=== PATIENT | female | born 1980 | race Caucasian/White ===

== ENCOUNTER 2021-01-11 19:21 | Emergency (ER) | payer BC ==
[2021-01-11 19:45] VITALS: TEMP 98.5
[2021-01-11] MEDS ORDERED: KETOROLAC 15 MG/ML 1 ML VIAL IVP STA (20:07)
[2021-01-11] MEDS ORDERED: ONDANSETRON 4 MG/2 ML VIAL IVP STA ×2 (20:31→22:30)
[2021-01-11 20:39] LABS: Basophils # (A) 0.1 k/uL (0-0.2); Basophils % (A) 1 %; Eosinophils # (A) 0.3 k/uL (0-0.7); Eosinophils % (A) 4 %; HCT 39.6 % (34.0-46.0); HGB 13.9 gm/dL (11.4-16.0); Lymphocytes # (A) 2.3 k/uL (1.0-4.8); Lymphocytes % (A) 29 %; MCH 30.5 pg (25.0-35.0); MCV 87.1 fL (80.0-100.0); Mean Platelet Volume 7.2; Monocytes # (A) 0.3 k/uL (0-1.0); Monocytes % (A) 4 %; Neutrophils # (A) 4.8 k/uL (1.3-7.7); Neutrophils % (A) 61 %; Platelet Count 247 k/uL (150-450); RBC 4.54 m/uL (3.80-5.40); RDW 13.7 % (11.5-15.5); WBC 7.9 k/uL (3.8-10.6)
[2021-01-11 20:41] LABS: Appearance,Urine Clear (Clear); Bacteria,Urine Rare /hpf; Bilirubin,Urine Negative (Negative); Blood,Urine Large (Negative); Color,Urine Light Yellow; Glucose,Urine (UA) Negative (Negative); Ketones,Urine Negative (Negative); Leukocyte Esterase,Urine Moderate (Negative); Nitrite,Urine Negative (Negative); PH, Urine 5.5 (5.0-8.0); Protein,Urine Negative (Negative); RBC,Urine 1 /hpf (0-5); Squamous Epithelial Cell,Urine 1 /hpf (0-4); Urobilinogen,Urine <2.0 mg/dL (<2.0); WBC,Urine 4 /hpf (0-5)
[2021-01-11 20:50] LABS: ALT 37 U/L (4-34); AST 30 U/L (14-36); African American GFR (CKD) >90 (>60 ml/min/1.73 sqM); Albumin 4.4 g/dL (3.5-5.0); Alkaline Phosphatase 86 U/L (38-126); Amylase 95 U/L (30-110); Anion Gap 10 mmol/L; Blood Urea Nitrogen 16 mg/dL (7-17); Calcium 9.8 mg/dL (8.4-10.2); Carbon Dioxide 25 mmol/L (22-30); Chloride 103 mmol/L (98-107); Glucose 87 mg/dL (74-99); Lipase 103 U/L (23-300); Non-African American GFR(CKD) >90 (>60 ml/min/1.73 sqM); Potassium 4.1 mmol/L (3.5-5.1); Sodium 138 mmol/L (137-145); Total Bilirubin 0.3 mg/dL (0.2-1.3); Total Protein 7.3 g/dL (6.3-8.2)
--- NOTE | 2021-01-11 20:52 | ED ---
Abdominal Pain HPI - General Source: patient, RN notes reviewed Mode of arrival: ambulatory Limitations: no limitations <Ananda Nelson - Last Filed: 01/11/21 22:58> <Lindsay Dhillon - Last Filed: 01/13/21 11:19> - General Chief Complaint: Abdominal Pain Stated Complaint: side pain Time Seen by Provider: 01/11/21 19:46 - History of Present Illness Initial Comments: This is a 40-year-old female presents emergency Department chief complaint right-sided abdominal pain. Patient states she's been having on and off s ymptoms but today she had associated nausea vomiting. Patient states that the pain is in her right side rates her right shoulder back. Denies any significant diarrhea constipation dysuria hematuria no chance . Patient states she has been associated with some fluids. Patient has no complaints of fevers chills chest pain currently. (Ananda Nelson) - Related Data Home Medications Medication Instructions Recorded Confirmed [place]a/APAP/Caf/Cod 86-858-25-30 1 cap PO Q4H PRN 07/24/16 07/24/16 [Fioricet w/Cod 85-875-97-30MG] Butalb/APAP/Caff 50-325-40Mg 1 - 2 tab PO Q6H PRN 07/24/16 07/24/16 [Fioricet 50-325-40] Rizatriptan Benzoate [Maxalt] 5 mg PO DAILY PRN 07/24/16 07/24/16 Previous Rx's Medication Instructions Recorded Cyclobenzaprine [Flexeril] 10 mg PO TID #20 tablet 07/24/16 Ibuprofen [Motrin] 600 mg PO Q8HR PRN #30 tab 07/24/16 Ondansetron Odt [Zofran Odt] 4 mg PO Q8HR PRN #10 tab 01/11/21 Allergies Allergy/AdvReac Type Severity Reaction Status Date / Time metoclopramide [From Reglan] Allergy Rapid Verified 01/11/21 19:45 Heart Rate Penicillins Allergy Rash/Hives Verified 01/11/21 19:45 prochlorperazine Allergy Rapid Verified 01/11/21 19:45 [From Compazine] Heart Rate Sulfa (Sulfonamide Allergy Rash/Hives Verified 02/18/19 10:40 Antibiotics) Review of Systems ROS Other: All systems not noted in ROS Statement are negative. <Ananda Nelson - Last Filed: 01/11/21 22:58> ROS Other: All systems not noted in ROS Statement are negative. <JacquieLindsay Orlando - Last Filed: 01/13/21 11:19> ROS Statement: Those systems with pertinent positive or pertinent negative responses have been documented in the HPI. 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 Absent: scleral icterus, conjunctival injection, periorbital swelling ENT exam: Present: normal exam, normal oropharynx, mucous membranes moist, TM's normal bilaterally Neck exam: Present: normal inspection, full ROM. Absent: tenderness, meningismus, lymphadenopathy Respiratory exam: Present: normal lung sounds bilaterally. Absent: respiratory distress, wheezes, rales, rhonchi, stridor Cardiovascular Exam: Present: regular rate, normal rhythm, normal heart sounds. Absent: systolic murmur, diastolic murmur, rubs, gallop, clicks GI/Abdominal exam: Present: soft, tenderness (Moderate right-sided), normal bowel sounds. Absent: distended, guarding, rebound, rigid Back exam: Absent: CVA tenderness (R), CVA tenderness (L) Neurological exam: Present: alert, oriented X3 Skin exam: Present: warm, dry, intact, normal color. Absent: rash <Ananda Nelson - Last Filed: 01/11/21 22:58> Course Vital Signs 01/11/21 01/11/21 01/11/21 19:42 20:55 21:55 Temperature 98.5 F Pulse Rate 87 68 64 Respiratory 20 16 16 Rate Blood Pressure 127/87 100/61 93/55 O2 Sat by Pulse 99 100 99 Oximetry 01/11/21 23:08 Temperature Pulse Rate 72 Respiratory 16 Rate Blood Pressure 98/62 O2 Sat by Pulse 98 Oximetry Medical Decision Making - Lab Data Result diagrams: 01/11/21 20:30 01/11/21 20:30 <Ananda Nelson - Last Filed: 01/11/21 22:58> - Lab Data Result diagrams: 01/11/21 20:30 01/11/21 20:30 <Lindsay Dhillon - Last Filed: 01/13/21 11:19> - Medical Decision Making Labs ultrasound and CT reviewed no CVAT findings patient has contracted ga llbladder concerning for biliary dyskinesia. Patient will follow-up with outpatient surgeon will follow low-fat diet and return parameters were discussed. (Ananda Nelson) I was available for consultation in the emergency department. The history and physical exam were done by the midlevel provider. I was consulted for this patients care. I reviewed the case with the midlevel provider and based on their presentation of the patient, I agree with the assessment, medical decision making and plan of care as documented. Chart was dictated using [employer] dictation software. Attempts were made to correct any dictation errors however some typographical errors may persist. Patient was seen during a national state of emergency due to the Covid-19 pandemic. (Lindsay Dhillon) - Lab Data Lab Results 01/11/21 01/11/21 01/11/21 Range/Units 20:30 20:30 20:30 WBC 7.9 (3.8-10.6) k/uL RBC 4.54 (3.80-5.40) m/uL Hgb 13.9 (11.4-16.0) gm/dL Hct 39.6 (34.0-46.0) % MCV 87.1 (80.0-100.0) fL MCH 30.5 (25.0-35.0) pg MCHC 35.0 (31.0-37.0) g/dL RDW 13.7 (11.5-15.5) % Plt Count 247 (150-450) k/uL MPV 7.2 Neutrophils % 61 % Lymphocytes % 29 % Monocytes % 4 % Eosinophils % 4 % Basophils % 1 % Neutrophils # 4.8 (1.3-7.7) k/uL Lymphocytes # 2.3 (1.0-4.8) k/uL Monocytes # 0.3 (0-1.0) k/uL Eosinophils # 0.3 (0-0.7) k/uL Basophils # 0.1 (0-0.2) k/uL Sodium (137-145) mmol/L Potassium (3.5-5.1) mmol/L Chloride (98-107) mmol/L Carbon Dioxide (22-30) mmol/L Anion Gap mmol/L BUN (7-17) mg/dL Creatinine (0.52-1.04) mg/dL Est GFR (CKD-EPI)AfAm (>60 ml/min/1.73 sqM) Est GFR (CKD-EPI)NonAf (>60 ml/min/1.73 sqM) Glucose (74-99) mg/dL Calcium (8.4-10.2) mg/dL Total Bilirubin (0.2-1.3) mg/dL AST (14-36) U/L ALT (4-34) U/L Alkaline Phosphatase (38-126) U/L Total Protein (6.3-8.2) g/dL Albumin (3.5-5.0) g/dL Amylase (30-110) U/L Lipase (23-300) U/L Urine Color Light Yellow Urine Appearance Clear (Clear) Urine pH 5.5 (5.0-8.0) Ur Specific [place] 1.010 (1.001-1.035) Urine Protein Negative (Negative) Urine Glucose (UA) Negative (Negative) Urine Ketones Negative (Negative) Urine Blood Large H (Negative) Urine Nitrite Negative (Negative) Urine Bilirubin Negative (Negative) Urine Urobilinogen <2.0 (<2.0) mg/dL Ur Leukocyte Esterase Moderate H (Negative) Urine RBC 1 (0-5) /hpf Urine WBC 4 (0-5) /hpf Ur Squamous Epith Cells 1 (0-4) /hpf Urine Bacteria Rare H (None) /hpf Urine HCG, Qual Not Detected (Not Detectd) 01/11/21 Range/Units 20:30 WBC (3.8-10.6) k/uL RBC (3.80-5.40) m/uL Hgb (11.4-16.0) gm/dL Hct (34.0-46.0) % MCV (80.0-100.0) fL MCH (25.0-35.0) pg MCHC (31.0-37.0) g/dL RDW (11.5-15.5) % Plt Count (150-450) k/uL MPV Neutrophils % % Lymphocytes % % Monocytes % % Eosinophils % % Basophils % % Neutrophils # (1.3-7.7) k/uL Lymphocytes # (1.0-4.8) k/uL Monocytes # (0-1.0) k/uL Eosinophils # (0-0.7) k/uL Basophils # (0-0.2) k/uL Sodium 138 (137-145) mmol/L Potassium 4.1 (3.5-5.1) mmol/L Chloride 103 (98-107) mmol/L Carbon Dioxide 25 (22-30) mmol/L Anion Gap 10 mmol/L BUN 16 (7-17) mg/dL Creatinine 0.74 (0.52-1.04) mg/dL Est GFR (CKD-EPI)AfAm >90 (>60 ml/min/1.73 sqM) Est GFR (CKD-EPI)NonAf >90 (>60 ml/min/1.73 sqM) Glucose 87 (74-99) mg/dL Calcium 9.8 (8.4-10.2) mg/dL Total Bilirubin 0.3 (0.2-1.3) mg/dL AST 30 (14-36) U/L ALT 37 H (4-34) U/L Alkaline Phosphatase 86 (38-126) U/L Total Protein 7.3 (6.3-8.2) g/dL Albumin 4.4 (3.5-5.0) g/dL Amylase 95 (30-110) U/L Lipase 103 (23-300) U/L Urine Color Urine Appearance (Clear) Urine pH (5.0-8.0) Ur Specific [place] (1.001-1.035) Urine Protein (Negative) Urine Glucose (UA) (Negative) Urine Ketones (Negative) Urine Blood (Negative) Urine Nitrite (Negative) Urine Bilirubin (Negative) Urine Urobilinogen (<2.0) mg/dL Ur Leukocyte Esterase (Negative) Urine RBC (0-5) /hpf Urine WBC (0-5) /hpf Ur Squamous Epith Cells (0-4) /hpf Urine Bacteria (None) /hpf Urine HCG, Qual (Not Detectd) Disposition Is patient prescribed a controlled substance at d/c from ED?: No Time of Disposition: 22:59 <Ananda Nelson - Last Filed: 01/11/21 22:58> <Lindsay Dhillon - Last Filed: 01/13/21 11:19> Clinical Impression: Biliary dyskinesia, Abdominal pain Disposition: HOME SELF-CARE Condition: Stable Instructions (If sedation given, give patient instructions): Low Fat Diet (ED), Abdominal Pain (ED) Additional Instructions: Please return to the Emergency Department if symptoms worsen or any other concerns. Prescriptions: Ondansetron Odt [Zofran Odt] 4 mg PO Q8HR PRN #10 tab PRN Reason: Nausea Referrals: Marissa Ramirez MD [Primary Care Provider] - 1-2 days Roni Carrero MD [Medical Doctor] - 1-2 days Yasmine Nayak MD [STAFF PHYSICIAN] - 1-2 days
--- NOTE | 2021-01-11 21:34 | US ---
EXAMINATION TYPE: US gallbladder DATE OF EXAM: 01/11/2021 COMPARISON: NONE CLINICAL HISTORY: pain. right sided pain, shoulder pain, vomited today EXAM MEASUREMENTS: Liver Length: 17.8 cm Gallbladder Wall: 0.4 cm CBD: 0.5 cm Right Kidney: 9.3 x 4.3 x 4.4 cm Pancreas: wnl Liver: wnl Gallbladder: contracted, pt NPO 3hrs Evidence for sonographic Oh's sign: no CBD: wnl Right Kidney: wnl IMPRESSION: Contracted gallbladder. No gallstones or dilated ducts.
[2021-01-11] MEDS ORDERED: HYDROmorphone 0.5 MG/0.5 ML SYRINGE IVP STA (22:30)
--- NOTE | 2021-01-11 22:32 | CT ---
EXAMINATION TYPE: CT abdomen pelvis w con DATE OF EXAM: 01/11/2021 COMPARISON: None HISTORY: Right sided abdominal pain. CT DLP: 1060.8 mGycm Automated exposure control for dose reduction was used. CONTRAST: Performed with IV Contrast, patient injected with 100ml mL of Isovue 300. Lung bases are clear. There is no pleural effusion. Heart size is normal. There is no pericardial eff usion. Liver spleen pancreas gallbladder stomach appear intact. Bile ducts are not dilated. There is no adre nal mass. Kidneys show satisfactory contrast opacification. There is no hydronephrosis. Delayed image s show normal renal excretion. There is no retroperitoneal adenopathy. There is no sign of thickened appendix. Bladder distends smoothly. There is IUD in the uterine fundus. Uterus is anteverted. There is no free fluid in the pelvis. Lumbar vertebra have normal spacing and alignment. The posterior elements are intact. Bony pelvis is intact. Hip joints are intact. There is no mesenteric edema. There is no ascites or free air. There is no bowel obstruction. There i s 1.5 x 3 cm fat-containing umbilical hernia. IMPRESSION: Negative exam. Appendix not seen. No sign of thickened appendix. Terminal ileum appears normal.
[2021-01-11 22:57] VITALS: RESP 16
[2021-01-11] MEDS ORDERED: ACET/COD 300 MG/30 MG STARTER PACK 6 TAB BTL PO STA (22:57)
[2021-01-11] MEDS ORDERED: ONDANSETRON 4 MG ODT STARTER PACK 2 TAB BTL PO STA (22:57)
[2021-01-11 23:10] VITALS: BP 98/62; PULSE 72
== END 2021-01-11 23:08 | disposition home or self-care (01) ==
LOC: EC 19:21
DX: R10.9 Unspecified abdominal pain (principal); K82.8 Other specified diseases of gallbladder; I42.9 Cardiomyopathy, unspecified; Z79.1 Long term (current) use of non-steroidal anti-inflammatories (NSAID); Z87.891 Personal history of nicotine dependence; Z79.899 Other long term (current) drug therapy; Z88.0 Allergy status to penicillin; Z88.2 Allergy status to sulfonamides; Z88.8 Allergy status to other drugs, medicaments and biological substances
CPT/HCPCS: 99284; 96374; 96375 ×2; 96376; 36415; 80053; 82150; 83690; 85025; 81001; 81025; 76705; 74177; J2405; J1885; S0119; J1170; Q9967

== ENCOUNTER 2021-01-13 11:35 | Emergency (ER) | payer BC ==
[2021-01-13 11:51] VITALS: TEMP 98.2
[2021-01-13] MEDS ORDERED: ONDANSETRON 4 MG/2 ML VIAL IVP STA (12:06)
[2021-01-13] MEDS ORDERED: HYDROmorphone 1 MG/ML 1 ML SYRINGE IVP STA (12:06)
--- NOTE | 2021-01-13 12:42 | XR ---
KUB HISTORY: Pain, distention vomiting Frontal KUB and [address] scan 01/11/2021 Lung bases are clear. Intrauterine contraceptive device is present within the pelvis. There is no joselin dent bowel obstruction or pneumoperitoneum. Retained fecal debris is present throughout the distribut ion of the colon. No pathologic calcification. Probable injection granuloma present over the left glu teal region. IMPRESSION: Correlate for fecal stasis. Intrauterine contraceptive device.
[2021-01-13 12:45] LABS: Basophils % (A) 1 %; Eosinophils # (A) 0.2 k/uL (0-0.7); Eosinophils % (A) 4 %; HCT 38.5 % (34.0-46.0); Lymphocytes # (A) 1.4 k/uL (1.0-4.8); Lymphocytes % (A) 24 %; MCH 29.7 pg (25.0-35.0); MCHC 33.8 g/dL (31.0-37.0); MCV 87.9 fL (80.0-100.0); Mean Platelet Volume 7.7; Monocytes # (A) 0.3 k/uL (0-1.0); Monocytes % (A) 4 %; Neutrophils # (A) 3.7 k/uL (1.3-7.7); Neutrophils % (A) 66 %; Platelet Count 238 k/uL (150-450); RBC 4.38 m/uL (3.80-5.40); RDW 13.8 % (11.5-15.5); WBC 5.6 k/uL (3.8-10.6)
[2021-01-13 12:53] LABS: ALT 32 U/L (4-34); AST 30 U/L (14-36); African American GFR (CKD) >90 (>60 ml/min/1.73 sqM); Alkaline Phosphatase 78 U/L (38-126); Amylase 70 U/L (30-110); Anion Gap 9 mmol/L; Blood Urea Nitrogen 9 mg/dL (7-17); Calcium 8.8 mg/dL (8.4-10.2); Carbon Dioxide 23 mmol/L (22-30); Chloride 107 mmol/L (98-107); Glucose 106 mg/dL (74-99); Lipase 68 U/L (23-300); Non-African American GFR(CKD) >90 (>60 ml/min/1.73 sqM); Potassium 4.4 mmol/L (3.5-5.1); Sodium 139 mmol/L (137-145); Total Bilirubin 0.3 mg/dL (0.2-1.3); Total Protein 6.6 g/dL (6.3-8.2)
[2021-01-13 13:01] LABS: INR 0.9 (<1.2); Partial Thromboplastin Time 22.6 sec (22.0-30.0); Prothrombin Time 9.5 sec (9.0-12.0)
[2021-01-13 13:02] LABS: Appearance,Urine Clear (Clear); Bilirubin,Urine Negative (Negative); Blood,Urine Trace (Negative); Color,Urine Colorless; Glucose,Urine (UA) Negative (Negative); Ketones,Urine Negative (Negative); Leukocyte Esterase,Urine Small (Negative); Mucus,Urine Rare /hpf; Nitrite,Urine Negative (Negative); PH, Urine 5.5 (5.0-8.0); Protein,Urine Negative (Negative); RBC,Urine 1 /hpf (0-5); Specific Gravity,Urine 1.004 (1.001-1.035); Squamous Epithelial Cell,Urine 1 /hpf (0-4); Urobilinogen,Urine <2.0 mg/dL (<2.0); WBC,Urine 1 /hpf (0-5)
--- NOTE | 2021-01-13 13:17 | ED ---
Abdominal Pain HPI - General Source: patient, RN notes reviewed Mode of arrival: ambulatory Limitations: no limitations <Ananda Nelson - Last Filed: 01/13/21 13:12> <Nadia Pelayo - Last Filed: 01/13/21 17:33> - General Chief Complaint: Abdominal Pain Stated Complaint: Right side pain, SOB Time Seen by Provider: 01/13/21 11:56 - History of Present Illness Initial Comments: 32-year-old female presents emergency Department chief complaint of worsening abdominal pain. Patient states she was seen here is ago had a complete workup at that time patient continues to have right upper quadrant pain states that she's having increased distention bloating of her abdomen. She states that it's causing her she has short of breath she states the pressure in her abdomen. She should to good bowel movement today denies any melena hematochezia and no significant vomiting states that she's nauseated she did have vomiting 3 days ago. Patient denies any chance no dysuria no other complaints. (Ananda Nelson) - Related Data Home Medications Medication Instructions Recorded Confirmed Cetirizine HCl [Zyrtec] 10 mg PO DAILY 01/13/21 01/13/21 FLUoxetine HCL [PROzac] 40 mg PO DAILY 01/13/21 01/13/21 Lansoprazole [Prevacid] 30 mg PO DAILY 01/13/21 01/13/21 Mirtazapine [Remeron] 15 mg PO HS 01/13/21 01/13/21 Paraguard 1 device VAGINAL ONCE 01/13/21 01/13/21 Promethazine [Phenergan] 25 mg PO TID PRN 01/13/21 01/13/21 RX: Ibuprofen [Motrin] 600 mg PO Q6H PRN 01/13/21 01/13/21 Rizatriptan Odt [Maxalt [employer]] 10 mg PO Q2H PRN 01/13/21 01/13/21 clonazePAM [KlonoPIN] 1 mg PO Q12H PRN 01/13/21 01/13/21 Allergies Allergy/AdvReac Type Severity Reaction Status Date / Time metoclopramide [From Reglan] Allergy Rapid Verified 01/13/21 12:46 Heart Rate Penicillins Allergy Rash/Hives Verified 01/13/21 12:46 prochlorperazine Allergy Rapid Verified 01/13/21 12:46 [From Compazine] Heart Rate Sulfa (Sulfonamide Allergy Rash/Hives Verified 01/13/21 12:46 Antibiotics) Review of Systems ROS Other: All systems not noted in ROS Statement are negative. <Ananda Nelson - Last Filed: 01/13/21 13:12> ROS Other: All systems not noted in ROS Statement are negative. <Nadia Pelayo - Last Filed: 01/13/21 17:33> ROS Statement: Those systems with pertinent positive or pertinent negative responses have been documented in the HPI. 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 Absent: scleral icterus, conjunctival injection, periorbital swelling ENT exam: Present: normal exam, normal oropharynx, mucous membranes moist Neck exam: Present: normal inspection, full ROM. Absent: tenderness, meningismus, lymphadenopathy Respiratory exam: Present: normal lung sounds bilaterally. Absent: respiratory distress, wheezes, rales, rhonchi, stridor Cardiovascular Exam: Present: regular rate, normal rhythm, normal heart sounds. Absent: systolic murmur, diastolic murmur, rubs, gallop, clicks GI/Abdominal exam: Present: soft, distended, tenderness, normal bowel sounds. Absent: guarding, rebound, rigid Back exam: Absent: CVA tenderness (R), CVA tenderness (L) Neurological exam: Present: alert, oriented X3 Skin exam: Present: warm, dry, intact, normal color. Absent: rash <Ananda Nelson - Last Filed: 01/13/21 13:12> Course Vital Signs 01/13/21 01/13/21 11:47 17:21 Temperature 98.2 F Pulse Rate 94 78 Respiratory 18 16 Rate Blood Pressure 118/77 O2 Sat by Pulse 100 98 Oximetry Medical Decision Making - Lab Data Result diagrams: 01/13/21 12:17 01/13/21 12:17 <Ananda Nelson - Last Filed: 01/13/21 13:12> - Lab Data Result diagrams: 01/13/21 12:17 01/13/21 12:17 <Nadia Pelayo - Last Filed: 01/13/21 17:33> - Lab Data Lab Results 01/13/21 01/13/21 01/13/21 Range/Units 12:17 12:17 12:17 WBC 5.6 (3.8-10.6) k/uL RBC 4.38 (3.80-5.40) m/uL Hgb 13.0 (11.4-16.0) gm/dL Hct 38.5 (34.0-46.0) % MCV 87.9 (80.0-100.0) fL MCH 29.7 (25.0-35.0) pg MCHC 33.8 (31.0-37.0) g/dL RDW 13.8 (11.5-15.5) % Plt Count 238 (150-450) k/uL MPV 7.7 Neutrophils % 66 % Lymphocytes % 24 % Monocytes % 4 % Eosinophils % 4 % Basophils % 1 % Neutrophils # 3.7 (1.3-7.7) k/uL Lymphocytes # 1.4 (1.0-4.8) k/uL Monocytes # 0.3 (0-1.0) k/uL Eosinophils # 0.2 (0-0.7) k/uL Basophils # 0.0 (0-0.2) k/uL PT 9.5 (9.0-12.0) sec INR 0.9 (<1.2) APTT 22.6 (22.0-30.0) sec Sodium (137-145) mmol/L Potassium (3.5-5.1) mmol/L Chloride (98-107) mmol/L Carbon Dioxide (22-30) mmol/L Anion Gap mmol/L BUN (7-17) mg/dL Creatinine (0.52-1.04) mg/dL Est GFR (CKD-EPI)AfAm (>60 ml/min/1.73 sqM) Est GFR (CKD-EPI)NonAf (>60 ml/min/1.73 sqM) Glucose (74-99) mg/dL Plasma Lactic Acid [place] (0.7-2.0) mmol/L Calcium (8.4-10.2) mg/dL Total Bilirubin (0.2-1.3) mg/dL AST (14-36) U/L ALT (4-34) U/L Alkaline Phosphatase (38-126) U/L Total Protein (6.3-8.2) g/dL Albumin (3.5-5.0) g/dL Amylase (30-110) U/L Lipase (23-300) U/L Urine Color Colorless Urine Appearance Clear (Clear) Urine pH 5.5 (5.0-8.0) Ur Specific [place] 1.004 (1.001-1.035) Urine Protein Negative (Negative) Urine Glucose (UA) Negative (Negative) Urine Ketones Negative (Negative) Urine Blood Trace H (Negative) Urine Nitrite Negative (Negative) Urine Bilirubin Negative (Negative) Urine Urobilinogen <2.0 (<2.0) mg/dL Ur Leukocyte Esterase Small H (Negative) Urine RBC 1 (0-5) /hpf Urine WBC 1 (0-5) /hpf Ur Squamous Epith Cells 1 (0-4) /hpf Urine Mucus Rare H (None) /hpf Urine HCG, Qual (Not Detectd) 01/13/21 01/13/21 01/13/21 Range/Units 12:17 12:17 12:17 WBC (3.8-10.6) k/uL RBC (3.80-5.40) m/uL Hgb (11.4-16.0) gm/dL Hct (34.0-46.0) % MCV (80.0-100.0) fL MCH (25.0-35.0) pg MCHC (31.0-37.0) g/dL RDW (11.5-15.5) % Plt Count (150-450) k/uL MPV Neutrophils % % Lymphocytes % % Monocytes % % Eosinophils % % Basophils % % Neutrophils # (1.3-7.7) k/uL Lymphocytes # (1.0-4.8) k/uL Monocytes # (0-1.0) k/uL Eosinophils # (0-0.7) k/uL Basophils # (0-0.2) k/uL PT (9.0-12.0) sec INR (<1.2) APTT (22.0-30.0) sec Sodium 139 (137-145) mmol/L Potassium 4.4 (3.5-5.1) mmol/L Chloride 107 (98-107) mmol/L Carbon Dioxide 23 (22-30) mmol/L Anion Gap 9 mmol/L BUN 9 (7-17) mg/dL Creatinine 0.63 (0.52-1.04) mg/dL Est GFR (CKD-EPI)AfAm >90 (>60 ml/min/1.73 sqM) Est GFR (CKD-EPI)NonAf >90 (>60 ml/min/1.73 sqM) Glucose 106 H (74-99) mg/dL Plasma Lactic Acid [place] 1.2 (0.7-2.0) mmol/L Calcium 8.8 (8.4-10.2) mg/dL Total Bilirubin 0.3 (0.2-1.3) mg/dL AST 30 (14-36) U/L ALT 32 (4-34) U/L Alkaline Phosphatase 78 (38-126) U/L Total Protein 6.6 (6.3-8.2) g/dL Albumin 4.0 (3.5-5.0) g/dL Amylase 70 (30-110) U/L Lipase 68 (23-300) U/L Urine Color Urine Appearance (Clear) Urine pH (5.0-8.0) Ur Specific [place] (1.001-1.035) Urine Protein (Negative) Urine Glucose (UA) (Negative) Urine Ketones (Negative) Urine Blood (Negative) Urine Nitrite (Negative) Urine Bilirubin (Negative) Urine Urobilinogen (<2.0) mg/dL Ur Leukocyte Esterase (Negative) Urine RBC (0-5) /hpf Urine WBC (0-5) /hpf Ur Squamous Epith Cells (0-4) /hpf Urine Mucus (None) /hpf Urine HCG, Qual Not Detected (Not Detectd) Disposition <Ananda Nelson - Last Filed: 01/13/21 13:12> Is patient prescribed a controlled substance at d/c from ED?: No <Nadia Pelayo - Last Filed: 01/13/21 17:33> Clinical Impression: Abdominal pain Disposition: HOME SELF-CARE Condition: Stable Instructions (If sedation given, give patient instructions): Abdominal Pain (ED) Referrals: Marissa Ramirez MD [Primary Care Provider] - 1-2 days
[2021-01-13] MEDS ORDERED: bisacodyL 10 MG SUPP RECTAL STA (16:54)
[2021-01-13 17:22] VITALS: PULSE 78; RESP 16
[2021-01-13 17:43] VITALS: BP 95/63
== END 2021-01-13 17:51 | disposition home or self-care (01) ==
LOC: EC 11:35
DX: R10.11 Right upper quadrant pain (principal); R14.0 Abdominal distension (gaseous); R06.02 Shortness of breath; I42.9 Cardiomyopathy, unspecified; F17.290 Nicotine dependence, other tobacco product, uncomplicated; F41.9 Anxiety disorder, unspecified; F32.9 Major depressive disorder, single episode, unspecified; Z79.899 Other long term (current) drug therapy; Z79.1 Long term (current) use of non-steroidal anti-inflammatories (NSAID); Z88.8 Allergy status to other drugs, medicaments and biological substances; Z88.0 Allergy status to penicillin; Z88.2 Allergy status to sulfonamides; Z97.5 Presence of (intrauterine) contraceptive device; Z87.01 Personal history of pneumonia (recurrent); Z87.891 Personal history of nicotine dependence
CPT/HCPCS: 36415; 80053; 82150; 83605; 83690; 85025; 85610; 85730; 81001; 81025; 74018; J1170; J1790; 96374; 96375; 99284

== ENCOUNTER 2021-01-17 10:40 | Observation (INO) | payer BC, OTHER ==
--- NOTE | 2021-01-17 11:03 | ED ---
General Adult HPI - General Chief complaint: Chest Pain Stated complaint: Chest pain, SOB Time Seen by Provider: 01/17/21 10:47 Source: patient, RN notes reviewed, old records reviewed Mode of arrival: ambulatory Limitations: no limitations - History of Present Illness Initial comments: 40-year-old female presents for reevaluation. Patient has been seen twice in the past several days for abdominal pain and chest pain. She was initially complaining of right upper quadrant abdominal pain and found to have biliary dyskinesia. She'll follow-up with general surgery and has a HIDA scan scheduled for tomorrow. Her chief complaint today is right upper chest pain. This is associated with dyspnea. No cough or fever. She has a remote history of javier schemic cardiomyopathy. She does report some bilateral lower extremity swelling. - Related Data Home Medications Medication Instructions Recorded Confirmed Cetirizine HCl [Zyrtec] 10 mg PO DAILY 01/13/21 01/17/21 FLUoxetine HCL [PROzac] 40 mg PO DAILY 01/13/21 01/17/21 Ibuprofen [Motrin] 600 mg PO Q6H PRN 01/13/21 01/17/21 Lansoprazole [Prevacid] 30 mg PO DAILY 01/13/21 01/17/21 Mirtazapine [Remeron] 15 mg PO HS 01/13/21 01/17/21 Paraguard 1 device VAGINAL ONCE 01/13/21 01/17/21 Promethazine [Phenergan] 25 mg PO TID PRN 01/13/21 01/17/21 Rizatriptan Odt [Maxalt Cartridge Belt Puncher] 10 mg PO Q2H PRN 01/13/21 01/17/21 clonazePAM [KlonoPIN] 1 mg PO Q12H PRN 01/13/21 01/17/21 Acetaminophen Tab [Tylenol Tab] 500 mg PO Q6HR PRN 01/17/21 01/17/21 Doxylamine Succinate [Unisom] 25 mg PO HS PRN 01/17/21 01/17/21 Allergies Allergy/AdvReac Type Severity Reaction Status Date / Time metoclopramide [From Reglan] Allergy Rapid Verified 01/17/21 11:43 Heart Rate Penicillins Allergy Rash/Hives Verified 01/17/21 11:43 prochlorperazine Allergy Rapid Verified 01/17/21 11:43 [From Compazine] Heart Rate Sulfa (Sulfonamide Allergy Rash/Hives Verified 01/17/21 11:43 Antibiotics) Review of Systems ROS Statement: Those systems with pertinent positive or pertinent negative responses have been documented in the HPI. ROS Other: All systems not noted in ROS Statement are negative. Past Medical History Past Medical History: Pneumonia Additional Past Medical History / Comment(s): migraines, 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 History of Any Multi-Drug Resistant Organisms: None Reported Past Surgical History: No Surgical Hx Reported Past Psychological History: Anxiety, Depression Smoking Status: Former smoker, Vaper Past Alcohol Use History: None Reported Past Drug Use History: None Reported General Exam Limitations: no limitations General appearance: alert, in no apparent distress Head exam: Present: atraumatic, normocephalic Eye exam: Present: normal appearance, PERRL ENT exam: Present: normal exam Neck exam: Present: normal inspection. Absent: tenderness, meningismus Respiratory exam: Present: normal lung sounds bilaterally. Absent: respiratory distress, wheezes, rhonchi Cardiovascular Exam: Present: regular rate, normal rhythm GI/Abdominal exam: Present: soft. Absent: distended, tenderness, guarding Extremities exam: Present: pedal edema Neurological exam: Present: alert, oriented X3, CN II-XII intact. Absent: motor sensory deficit Psychiatric exam: Present: normal affect, normal mood Skin exam: Present: warm, dry, intact. Absent: cyanosis, diaphoretic Course Vital Signs 01/17/21 01/17/21 01/17/21 10:41 11:14 12:55 Temperature 97.6 F Pulse Rate 79 76 78 Respiratory 16 18 18 Rate Blood Pressure 110/70 100/60 98/64 O2 Sat by Pulse 100 98 0 L Oximetry 01/17/21 13:47 Temperature Pulse Rate 73 Respiratory 20 Rate Blood Pressure 96/61 O2 Sat by Pulse 98 Oximetry EKG Findings - EKG Comments: EKG Findings:: EKG: Normal sinus rhythm, rate 76, MN interval 144, QRS duration 84, QTC 409, no ST segment elevation T waves are upright. Medical Decision Making - Medical Decision Making 40-year-old presenting for reevaluation of abdominal pain and chest pain. Patient scheduled for a HIDA scan as an outpatient. EKG is sinus rhythm without ischemic changes. Chest x-rays negative for acute cardiac primary disease she has normal CBC, normal CMP, negative initial troponin. She has a d-dimer of 0.68 and therefore given the pleuritic nature of her right-sided chest pain CT angiography was performed which is negative for PE. Given her ongoing symptoms she will be admitted for surgical patient as well as HIDA scan. Echo will be ordered regarding her chest pain and dyspnea. History of cardiomyopathy. Case discussed with Dr. Bello who will admit. - Lab Data Result diagrams: 01/17/21 11:12 01/17/21 11:12 Lab Results 01/17/21 01/17/21 01/17/21 Range/Units 11:12 11:12 11:12 WBC 6.3 (3.8-10.6) k/uL RBC 4.39 (3.80-5.40) m/uL Hgb 12.6 (11.4-16.0) gm/dL Hct 37.8 (34.0-46.0) % MCV 86.1 (80.0-100.0) fL MCH 28.8 (25.0-35.0) pg MCHC 33.4 (31.0-37.0) g/dL RDW 14.1 (11.5-15.5) % Plt Count 262 (150-450) k/uL MPV 7.4 Neutrophils % 65 % Lymphocytes % 22 % Monocytes % 4 % Eosinophils % 7 % Basophils % 1 % Neutrophils # 4.1 (1.3-7.7) k/uL Lymphocytes # 1.4 (1.0-4.8) k/uL Monocytes # 0.3 (0-1.0) k/uL Eosinophils # 0.4 (0-0.7) k/uL Basophils # 0.1 (0-0.2) k/uL PT 9.5 (9.0-12.0) sec INR 0.9 (<1.2) APTT 23.5 (22.0-30.0) sec D-Dimer 0.68 H (<0.60) mg/L FEU Sodium 135 L (137-145) mmol/L Potassium 4.5 (3.5-5.1) mmol/L Chloride 102 (98-107) mmol/L Carbon Dioxide 25 (22-30) mmol/L Anion Gap 8 mmol/L BUN 14 (7-17) mg/dL Creatinine 0.66 (0.52-1.04) mg/dL Est GFR (CKD-EPI)AfAm >90 (>60 ml/min/1.73 sqM) Est GFR (CKD-EPI)NonAf >90 (>60 ml/min/1.73 sqM) Glucose 97 (74-99) mg/dL Calcium 9.3 (8.4-10.2) mg/dL Magnesium 1.8 (1.6-2.3) mg/dL Total Bilirubin 0.4 (0.2-1.3) mg/dL AST 53 H (14-36) U/L ALT 80 H (4-34) U/L Alkaline Phosphatase 81 (38-126) U/L Troponin I (0.000-0.034) ng/mL NT-Pro-B Natriuret Pep pg/mL Total Protein 6.4 (6.3-8.2) g/dL Albumin 3.8 (3.5-5.0) g/dL Lipase 58 (23-300) U/L 01/17/21 01/17/21 Range/Units 11:12 11:12 WBC (3.8-10.6) k/uL RBC (3.80-5.40) m/uL Hgb (11.4-16.0) gm/dL Hct (34.0-46.0) % MCV (80.0-100.0) fL MCH (25.0-35.0) pg MCHC (31.0-37.0) g/dL RDW (11.5-15.5) % Plt Count (150-450) k/uL MPV Neutrophils % % Lymphocytes % % Monocytes % % Eosinophils % % Basophils % % Neutrophils # (1.3-7.7) k/uL Lymphocytes # (1.0-4.8) k/uL Monocytes # (0-1.0) k/uL Eosinophils # (0-0.7) k/uL Basophils # (0-0.2) k/uL PT (9.0-12.0) sec INR (<1.2) APTT (22.0-30.0) sec D-Dimer (<0.60) mg/L FEU Sodium (137-145) mmol/L Potassium (3.5-5.1) mmol/L Chloride (98-107) mmol/L Carbon Dioxide (22-30) mmol/L Anion Gap mmol/L BUN (7-17) mg/dL Creatinine (0.52-1.04) mg/dL Est GFR (CKD-EPI)AfAm (>60 ml/min/1.73 sqM) Est GFR (CKD-EPI)NonAf (>60 ml/min/1.73 sqM) Glucose (74-99) mg/dL Calcium (8.4-10.2) mg/dL Magnesium (1.6-2.3) mg/dL Total Bilirubin (0.2-1.3) mg/dL AST (14-36) U/L ALT (4-34) U/L Alkaline Phosphatase (38-126) U/L Troponin I <0.012 (0.000-0.034) ng/mL NT-Pro-B Natriuret Pep 27 pg/mL Total Protein (6.3-8.2) g/dL Albumin (3.5-5.0) g/dL Lipase (23-300) U/L Disposition Clinical Impression: Biliary dyskinesia, Abdominal pain, Chest pain Disposition: ADMITTED IP TO THIS HOSP Condition: Stable Is patient prescribed a controlled substance at d/c from ED?: No Referrals: Marissa Ramirez MD [Primary Care Provider] - 1-2 days Decision to Admit Reason: Admit from EC Decision Date: 01/17/21 Decision Time: 14:23
[2021-01-17 11:26] LABS: Basophils # (A) 0.1 k/uL (0-0.2); Basophils % (A) 1 %; Eosinophils # (A) 0.4 k/uL (0-0.7); Eosinophils % (A) 7 %; HCT 37.8 % (34.0-46.0); HGB 12.6 gm/dL (11.4-16.0); Lymphocytes # (A) 1.4 k/uL (1.0-4.8); Lymphocytes % (A) 22 %; MCH 28.8 pg (25.0-35.0); MCHC 33.4 g/dL (31.0-37.0); MCV 86.1 fL (80.0-100.0); Mean Platelet Volume 7.4; Monocytes # (A) 0.3 k/uL (0-1.0); Monocytes % (A) 4 %; Neutrophils # (A) 4.1 k/uL (1.3-7.7); Neutrophils % (A) 65 %; Platelet Count 262 k/uL (150-450); RBC 4.39 m/uL (3.80-5.40); RDW 14.1 % (11.5-15.5); WBC 6.3 k/uL (3.8-10.6)
[2021-01-17 11:32] LABS: ALT 80 U/L (4-34); AST 53 U/L (14-36); African American GFR (CKD) >90 (>60 ml/min/1.73 sqM); Albumin 3.8 g/dL (3.5-5.0); Alkaline Phosphatase 81 U/L (38-126); Anion Gap 8 mmol/L; Blood Urea Nitrogen 14 mg/dL (7-17); Calcium 9.3 mg/dL (8.4-10.2); Carbon Dioxide 25 mmol/L (22-30); Chloride 102 mmol/L (98-107); Glucose 97 mg/dL (74-99); Lipase 58 U/L (23-300); Magnesium 1.8 mg/dL (1.6-2.3); Non-African American GFR(CKD) >90 (>60 ml/min/1.73 sqM); Potassium 4.5 mmol/L (3.5-5.1); Sodium 135 mmol/L (137-145); Total Bilirubin 0.4 mg/dL (0.2-1.3); Total Protein 6.4 g/dL (6.3-8.2)
--- NOTE | 2021-01-17 11:37 | XR ---
EXAMINATION TYPE: XR chest 2V DATE OF EXAM: 01/17/2021 COMPARISON: None HISTORY: 40-year-old female with chest pain and shortness of breath TECHNIQUE: PA and lateral views FINDINGS: The cardiomediastinal silhouette, aorta, and pulmonary vasculature are within normal limits. Lungs an d pleural spaces are clear. IMPRESSION: No acute cardiopulmonary process.
[2021-01-17 11:50] LABS: INR 0.9 (<1.2); Partial Thromboplastin Time 23.5 sec (22.0-30.0); Prothrombin Time 9.5 sec (9.0-12.0)
[2021-01-17 13:03] LABS: D-Dimer 0.68 mg/L FEU (<0.60)
[2021-01-17] MEDS ORDERED: KETOROLAC 15 MG/ML 1 ML VIAL IVP STA (13:22)
--- NOTE | 2021-01-17 14:09 | CT ---
EXAMINATION TYPE: CT angio chest DATE OF EXAM: 01/17/2021 COMPARISON: Radiograph same day HISTORY: 40-year-old female Chest pain, back pains TECHNIQUE: Contiguous axial scanning of the chest performed with IV Contrast, patient injected with 1 00 mL of Isovue 370. Coronal/sagittal MIP reconstructions performed. CT DLP: 307.5 mGycm Automated exposure control for dose reduction was used. FINDINGS: Heart upper limits of normal in size. No flattening of the interventricular septum reflux of contrast into the hepatic veins. Borderline ectatic ascending aorta 3.6 cm. Bovine configuration to the aortic arch. Some prominent ca rdiac motion along the left lateral wall of the ascending aorta. Satisfactory opacification the pulmonary arterial system without evidence for pulmonary embolus. No t horacic lymphadenopathy by CT size criteria. No consolidation or pleural effusion. No suspicious groundglass changes. Visualized upper abdomen shows no gross abnormality. Bones: No osseous destructive process. IMPRESSION: NO EVIDENCE FOR PULMONARY EMBOLUS OR ACUTE PULMONARY PROCESS.
[2021-01-17] MEDS ORDERED: HYDROmorphone 0.5 MG/0.5 ML SYRINGE IVP STA (14:17)
[2021-01-17] MEDS ORDERED: HYDROmorphone 0.5 MG/0.5 ML SYRINGE IVP PRN (14:18)
[2021-01-17] MEDS ORDERED: NALOXONE 0.4 MG/ML 1 ML VIAL IV PRN ×2 (14:18→18:24)
[2021-01-17] MEDS ORDERED: ONDANSETRON 4 MG/2 ML VIAL IVP PRN ×2 (14:18→18:28)
--- NOTE | 2021-01-17 16:39 | NM ---
EXAMINATION TYPE: NM hepatobiliary w CCK DATE OF EXAM: 01/17/2021 COMPARISON: Ultrasound 01/11/2021 HISTORY: 40-year-old female right upper quadrant pain TECHNIQUE: After the intravenous administration of 4.2 mCi Tc 99m Mebrofenin hepatobiliary scintigrap hy is performed. Immediate images post injection. FINDINGS: There is satisfactory initial accumulation of tracer by the liver. The gallbladder is visualized wit hin 10 minutes. The small bowel activity is seen after CCK injection At one hour CCK was administere d, patient was injected with 1.6 mcg of Kinevac, and gallbladder ejection fraction is calculated at 5 6 %, in the normal range. Therefore there is no scintigraphic evidence of cystic or common bile duct obstruction to suggest acute cholecystitis or gallbladder dyskinesia. IMPRESSION: No scintigraphic evidence for acute/chronic cholecystitis or biliary dyskinesia.
[2021-01-17] MEDS: SODIUM CHLORIDE 0.9% 1,000 ML IV SCH (17:24)
[2021-01-17] MEDS ORDERED: MORPHINE SULFATE 4 MG/ML SYRINGE IV PRN (18:24)
[2021-01-17] MEDS ORDERED: CALCIUM CARBONATE 500 MG CHEWABLE PO PRN (18:24)
[2021-01-17] MEDS ORDERED: PATIENT'S OWN (Doxylamine Succinate [Unisom] 25 MG Tablet) PO PRN (18:27)
[2021-01-17] MEDS ORDERED: SUMAtriptan succinate 50 MG TAB PO PRN (18:27)
[2021-01-17] MEDS ORDERED: [UNRECOGNIZED DRUG - OTHER] VAGINAL SCH (18:30)
--- NOTE | 2021-01-17 18:31 | P.HPIM ---
History of Present Illness H&P Date: 01/17/21 Chief Complaint: RUQ abd pain 40 year old woman with history of anxiety/depression, GERD, pseudotumor cerebri, IBS presented with abdominal pain. 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 Patient says that her pain started 1.5 weeks ago as shoulder pain, which she felt was referred, then began to experience pain in her RUQ. Since then, the pain has gotten progressively worse. She presented to the ER on 01/11, and was told that she may have a gallbladder issue and was recommended to follow up with General Sx on 01/18 for HIDA scan and follow up evaluation. She returned to the ER last thursday due to worsening symptoms as well as symptoms of bloating and nausea, but no vomiting. At this time, she was told she had some constipation and was given bowel regimen. Notably, prior to this visit, she had given herself an enema bc she felt constipated and said that she had appropriate bowel movements afterwards. She returns again today, complaining of ongoing abdominal pain, in the RUQ with radiation to the shoulder. She also says that sometimes she feels her pain in her chest with radiation to the back. She describes this as a burning feeling without any alleviation from positional change. She says that at times throughout these 1.5 weeks, she has tried her prevacid and gained some relief. She also says that she has used her tylenol and motrin 600mg in an alternating fashion for this last 1.5 weeks due to pain. ROS is + as above; - for fevers, chills, dyspnea, dysuria, dyschezia, numbness/weakness of extremities. In the ER, pertinent lab findings were elevated ALT/AST, and elevated D-Dimer, otherwise unremarkable labs. Review of Systems All Systems reviewed and pertinent positives and negatives noted in HPI, all other symptoms are negative Past Medical History Past Medical History: Pneumonia Additional Past Medical History / Comment(s): migraines, 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 History of Any Multi-Drug Resistant Organisms: None Reported Past Surgical History: No Surgical Hx Reported Past Psychological History: Anxiety, Depression Smoking Status: Former smoker, Vaper Past Alcohol Use History: None Reported Past Drug Use History: None Reported Medications and Allergies Home Medications Medication Instructions Recorded Confirmed Type Cetirizine HCl [Zyrtec] 10 mg PO DAILY 01/13/21 01/17/21 History FLUoxetine HCL [PROzac] 40 mg PO DAILY 01/13/21 01/17/21 History Ibuprofen [Motrin] 600 mg PO Q6H PRN 01/13/21 01/17/21 History Lansoprazole [Prevacid] 30 mg PO DAILY 01/13/21 01/17/21 History Mirtazapine [Remeron] 15 mg PO HS 01/13/21 01/17/21 History Paraguard 1 device VAGINAL ONCE 01/13/21 01/17/21 History Promethazine [Phenergan] 25 mg PO TID PRN 01/13/21 01/17/21 History Rizatriptan Odt [Maxalt Recorder Helper Gravity Prospecting] 10 mg PO Q2H PRN 01/13/21 01/17/21 History clonazePAM [KlonoPIN] 1 mg PO Q12H PRN 01/13/21 01/17/21 History Acetaminophen Tab [Tylenol Tab] 500 mg PO Q6HR PRN 01/17/21 01/17/21 History Doxylamine Succinate [Unisom] 25 mg PO HS PRN 01/17/21 01/17/21 History Allergies Allergy/AdvReac Type Severity Reaction Status Date / Time metoclopramide [From Reglan] Allergy Rapid Verified 01/17/21 11:43 Heart Rate Penicillins Allergy Rash/Hives Verified 01/17/21 11:43 prochlorperazine Allergy Rapid Verified 01/17/21 11:43 [From Compazine] Heart Rate Sulfa (Sulfonamide Allergy Rash/Hives Verified 01/17/21 11:43 Antibiotics) Physical Exam Osteopathic Statement: *. No significant issues noted on an osteopathic structural exam other than those noted in the History and Physical/Consult. Vitals: Vital Signs Temp Pulse Resp BP Pulse Ox 01/17/21 13:47 73 20 96/61 98 01/17/21 12:55 78 18 98/64 0 L 01/17/21 11:14 76 18 100/60 98 01/17/21 10:41 97.6 F 79 16 110/70 100 Intake and Output 01/17/21 01/17/21 01/17/21 06:59 14:59 22:59 Other: Weight 81.647 kg Gen: awake, alert HEENT: normocephalic, atraumatic, good hearing acuity, moist mucous membranes Resp: good air exchange, breathing comfortably with no accessory muscle use CVS: good distal perfusion x 4, GI: soft, NTTP, ND : no SPT, no CVAT, ohara catheter not present MSK: no pitting edema, no clubbing Neuro: non-focal, moving all extremities Psych: cooperative, euthymic mood Results CBC & Chem 7: 01/17/21 11:12 01/17/21 11:12 Labs: Abnormal Lab Results - Last 24 Hours (Table) 01/17/21 01/17/21 Range/Units 11:12 11:12 D-Dimer 0.68 H (<0.60) mg/L FEU Sodium 135 L (137-145) mmol/L AST 53 H (14-36) U/L ALT 80 H (4-34) U/L Assessment and Plan Assessment: 1. Abdominal Pain 2. Anxiety and Depression 3. Hx of Pseudotumor Cerebri 4. GERD 5. IBS 40 year old woman with history of anxiety/depression, GERD, pseudotumor cerebri, IBS presented with abdominal pain with negative HIDA scan and mildly elevated LFTs, which are non-specific, admitted for further workup. Plan: - admit to observation - surgery consult, pending - GI consult for elevated LFTs - for now will order: chronic hepatitis panel - HIDA scan neg for cholecystitis - PPI PO BID - IVF: 75cc/hr - tylenol PRN + morphine PRN for pain - zofran PRN for nausea - [place] diet as tolerated - continue home medications Full Code DVT PPx: enoxaparin 40mg SQ daily
[2021-01-17] MEDS: clonazePAM 1 MG TAB PO PRN (19:44)
[2021-01-17] MEDS ORDERED: MIRTAZAPINE 15 MG TAB PO SCH (21:00)
[2021-01-18] MEDS: PROMETHAZINE 25 MG TAB PO PRN ×2 (02:17→07:58)
[2021-01-18] MEDS: ACETAMINOPHEN TAB 325 MG TAB PO PRN ×2 (02:18→11:45)
[2021-01-18] MEDS: SODIUM CHLORIDE 0.9% 1,000 ML IV SCH (05:59)
[2021-01-18 07:06] LABS: Basophils % (A) 1 %; Eosinophils # (A) 0.2 k/uL (0-0.7); Eosinophils % (A) 4 %; HCT 36.6 % (34.0-46.0); HGB 12.2 gm/dL (11.4-16.0); Lymphocytes # (A) 1.3 k/uL (1.0-4.8); Lymphocytes % (A) 26 %; MCH 29.2 pg (25.0-35.0); MCHC 33.3 g/dL (31.0-37.0); MCV 87.4 fL (80.0-100.0); Mean Platelet Volume 7.3; Monocytes # (A) 0.3 k/uL (0-1.0); Monocytes % (A) 5 %; Neutrophils # (A) 3.2 k/uL (1.3-7.7); Neutrophils % (A) 64 %; Platelet Count 210 k/uL (150-450); RBC 4.19 m/uL (3.80-5.40); RDW 13.7 % (11.5-15.5); WBC 5.1 k/uL (3.8-10.6)
[2021-01-18 07:15] LABS: African American GFR (CKD) >90 (>60 ml/min/1.73 sqM); Anion Gap 3 mmol/L; Blood Urea Nitrogen 10 mg/dL (7-17); Calcium 8.5 mg/dL (8.4-10.2); Carbon Dioxide 30 mmol/L (22-30); Chloride 104 mmol/L (98-107); Glucose 91 mg/dL (74-99); Magnesium 1.9 mg/dL (1.6-2.3); Non-African American GFR(CKD) 88 (>60 ml/min/1.73 sqM); Potassium 4.2 mmol/L (3.5-5.1); Sodium 137 mmol/L (137-145)
[2021-01-18] MEDS ORDERED: PANTOPRAZOLE 40 MG TABLET PO SCH (07:30)
[2021-01-18] MEDS: clonazePAM 1 MG TAB PO PRN (07:53)
[2021-01-18] MEDS ORDERED: FLUoxetine HCL 20 MG CAP PO SCH (09:00)
[2021-01-18] MEDS ORDERED: LORATADINE 10 MG TAB PO SCH (09:00)
[2021-01-18] MEDS ORDERED: ENOXAPARIN 40 MG/0.4 ML SYRINGE SQ SCH (09:00)
[2021-01-18 09:21] LABS: Albumin 3.3 g/dL (3.5-5.0); Albumin/Globulin Ratio 1.4; Bilirubin,Unconjugated 0.5 mg/dL (0.0-1.1); Globulin 2.4 g/dL; Total Bilirubin 0.5 mg/dL (0.2-1.3); Total Protein 5.7 g/dL (6.3-8.2)
--- NOTE | 2021-01-18 09:36 | P.GSCN ---
History of Present Illness Consult date: 01/18/21 History of present illness: 40-year-old female presents to the emergency department with complaints of right upper quadrant pain and shortness of breath and chest pain. She is known to me as I seen her in the clinic this week to rule out biliary etiology of the pain. She has had 2 previous emergency department visits in the last week secondary to this same issue. Previous ultrasound and CAT scan were negative for any intra- abdominal process. Ultrasound did reveal a contracted gallbladder. While in the clinic, I did recommend outpatient HIDA scan for evaluation for biliary dyskinesia. She did have this testing performed since arriving in the ER and ejection fraction is noted at 56% with no evidence of biliary dyskinesia and no evidence of cholecystitis. Currently, on exam, the patient continues to have right upper quadrant pain that radiates to the right flank and right shoulder. There is no evidence of leukocytosis and there is some mild elevation of transaminases. She states she does have a decreased appetite but is hungry. She denies any significant changes in bowel function. She states that her pain is not significantly improved since her admission. Review of Systems All systems: negative Past Medical History Past Medical History: Pneumonia Additional Past Medical History / Comment(s): migraines, 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 History of Any Multi-Drug Resistant Organisms: None Reported Past Surgical History: No Surgical Hx Reported Past Psychological History: Anxiety, Depression Smoking Status: Former smoker, Vaper Past Alcohol Use History: None Reported Past Drug Use History: None Reported Medications and Allergies Home Medications Medication Instructions Recorded Confirmed Type Cetirizine HCl [Zyrtec] 10 mg PO DAILY 01/13/21 01/17/21 History FLUoxetine HCL [PROzac] 40 mg PO DAILY 01/13/21 01/17/21 History Ibuprofen [Motrin] 600 mg PO Q6H PRN 01/13/21 01/17/21 History Lansoprazole [Prevacid] 30 mg PO DAILY 01/13/21 01/17/21 History Mirtazapine [Remeron] 15 mg PO HS 01/13/21 01/17/21 History Paraguard 1 device VAGINAL ONCE 01/13/21 01/17/21 History Promethazine [Phenergan] 25 mg PO TID PRN 01/13/21 01/17/21 History Rizatriptan Odt [Maxalt Assistant Credit Manager] 10 mg PO Q2H PRN 01/13/21 01/17/21 History clonazePAM [KlonoPIN] 1 mg PO Q12H PRN 01/13/21 01/17/21 History Acetaminophen Tab [Tylenol Tab] 500 mg PO Q6HR PRN 01/17/21 01/17/21 History Doxylamine Succinate [Unisom] 25 mg PO HS PRN 01/17/21 01/17/21 History Allergies Allergy/AdvReac Type Severity Reaction Status Date / Time metoclopramide [From Reglan] Allergy Rapid Verified 01/17/21 11:43 Heart Rate Penicillins Allergy Rash/Hives Verified 01/17/21 11:43 prochlorperazine Allergy Rapid Verified 01/17/21 11:43 [From Compazine] Heart Rate Sulfa (Sulfonamide Allergy Rash/Hives Verified 01/17/21 11:43 Antibiotics) Surgical - Exam Osteopathic Statement: *. No significant issues noted on an osteopathic structural exam other than those noted in the History and Physical/Consult. Vital Signs Temp Pulse Resp BP Pulse Ox 97.6 F 79 16 110/70 100 01/17/21 10:41 01/17/21 10:41 01/17/21 10:41 01/17/21 10:41 01/17/21 10:41 - General well developed, well nourished - Eyes PERRL - ENT no hearing loss - Neck trachea midline - Respiratory normal respiratory effort - Abdomen Soft, some tenderness to palpation in the right upper quadrant and right flank, mildly distended, no rebound, no guarding - Psychiatric oriented to time, oriented to person, oriented to place Results - Labs 01/18/21 06:33 01/18/21 06:33 Abnormal Lab Results - Last 24 Hours (Table) 01/17/21 01/17/21 01/18/21 Range/Units 11:12 11:12 06:33 D-Dimer 0.68 H (<0.60) mg/L FEU Sodium 135 L (137-145) mmol/L AST 53 H 61 H (14-36) U/L ALT 80 H 86 H (4-34) U/L Total Protein 5.7 L (6.3-8.2) g/dL Albumin 3.3 L (3.5-5.0) g/dL Diabetes panel 01/17/21 01/18/21 01/18/21 Range/Units : 06:33 06:33 Sodium 135 L 137 (137-145) mmol/L Potassium 4.5 4.2 (3.5-5.1) mmol/L Chloride 102 104 (98-107) mmol/L Carbon Dioxide 25 30 (22-30) mmol/L BUN 14 10 (7-17) mg/dL Creatinine 0.66 0.84 (0.52-1.04) mg/dL Glucose 97 91 (74-99) mg/dL Calcium 9.3 8.5 (8.4-10.2) mg/dL AST 53 H 61 H (14-36) U/L ALT 80 H 86 H (4-34) U/L Alkaline Phosphatase 81 83 (38-126) U/L Total Protein 6.4 5.7 L (6.3-8.2) g/dL Albumin 3.8 3.3 L (3.5-5.0) g/dL Calcium panel 01/17/21 01/18/21 01/18/21 Range/Units : 06:33 06:33 Calcium 9.3 8.5 (8.4-10.2) mg/dL Albumin 3.8 3.3 L (3.5-5.0) g/dL Pituitary panel 01/17/21 01/18/21 Range/Units : 06:33 Sodium 135 L 137 (137-145) mmol/L Potassium 4.5 4.2 (3.5-5.1) mmol/L Chloride 102 104 (98-107) mmol/L Carbon Dioxide 25 30 (22-30) mmol/L BUN 14 10 (7-17) mg/dL Creatinine 0.66 0.84 (0.52-1.04) mg/dL Glucose 97 91 (74-99) mg/dL Calcium 9.3 8.5 (8.4-10.2) mg/dL Adrenal panel 01/17/21 01/18/21 01/18/21 Range/Units : 06:33 06:33 Sodium 135 L 137 (137-145) mmol/L Potassium 4.5 4.2 (3.5-5.1) mmol/L Chloride 102 104 (98-107) mmol/L Carbon Dioxide 25 30 (22-30) mmol/L BUN 14 10 (7-17) mg/dL Creatinine 0.66 0.84 (0.52-1.04) mg/dL Glucose 97 91 (74-99) mg/dL Calcium 9.3 8.5 (8.4-10.2) mg/dL Total Bilirubin 0.4 0.5 (0.2-1.3) mg/dL AST 53 H 61 H (14-36) U/L ALT 80 H 86 H (4-34) U/L Alkaline Phosphatase 81 83 (38-126) U/L Total Protein 6.4 5.7 L (6.3-8.2) g/dL Albumin 3.8 3.3 L (3.5-5.0) g/dL Assessment and Plan Plan: 40-year-old female with right upper quadrant pain, shortness of breath or chest pain. Patient has had a significant workup with multiple modalities of imaging. Currently, there is no evidence of biliary dyskinesia or acute cholecystitis or chronic cholecystitis based on imaging. Patient does have a Gastrografin Rowsey consult pending that was placed by internal medicine. She may benefit from a gastroenterology evaluation for abdominal pain. I also do recommend continuing PPI at this point. There is no plan for acute surgical intervention as there does not appear to be a gallbladder etiology to the patient's symptoms based on imaging workup.
[2021-01-18] MEDS ORDERED: NA PHOS,M-B/NA PHOS,DI-BA 133 ML ENEMA RECTAL STA (12:16)
--- NOTE | 2021-01-18 12:40 | ECHOF ---
Referral Reason:Chest pain dyspnea MEASUREMENTS -------- HEIGHT: 157.5 cm WEIGHT: 81.6 kg BP: RVIDd: 2.8 cm (< 3.3) IVSd: 1.1 cm (0.6 - 1.1) LVIDd: 3.6 cm (3.9 - 5.3) LVPWd: 1.1 cm (0.6 - 1.1) IVSs: 1.6 cm LVIDs: 2.0 cm LVPWs: 1.5 cm Ao Diam: 2.8 cm (2.0 - 3.7) AV Cusp: 1.7 cm (1.5 - 2.6) LA Diam: 2.6 cm (2.7 - 3.8) MV EXCURSION: 14.946 mm (> 18.000) MV EF SLOPE: 148 mm/s (70 - 150) EPSS: 1.0 cm MV E Rodríguez: 0.85 m/s MV DecT: 221 ms MV A Rodríguez: 0.56 m/s MV E/A Ratio: 1.52 RAP: 5.00 mmHg RVSP: 21.42 mmHg FINDINGS -------- Sinus rhythm. This was a technically adequate study. The left ventricular size is normal. Left ventricular wall thickness is normal. Overall left vent ricular systolic function is normal with, an EF between 55 - 60 %. The diastolic filling pattern is normal for the age of the patient 7.80. The right ventricle is normal in size. The left atrial size is normal. The right atrial size is normal. The aortic valve is trileaflet, and appears structurally normal. No aortic stenosis or regurgitation. The mitral valve is normal. There is trace mitral regurgitation. The tricuspid valve appears structurally normal. Mild tricuspid regurgitation present. Right vent ricular systolic pressure is normal at < 35 mmHg. There is no pulmonic regurgitation present. The aortic root size is normal. Normal inferior vena cava with normal inspiratory collapse consistent with estimated right atrial pre ssure of 5 mmHg. There is no pericardial effusion. CONCLUSIONS -------- 1. Left ventricular wall thickness is normal. 2. Overall left ventricular systolic function is normal with, an EF between 55 - 60 %. 3. The left atrial size is normal. 4. The aortic valve is trileaflet, and appears structurally normal. No aortic stenosis or regurgitati on. 5. There is trace mitral regurgitation. 6. Mild tricuspid regurgitation present. 7. There is no pericardial effusion. HOSPICE CARE SALES CONSULTANT: Anabelle Vasquez RDCS
[2021-01-18 13:49] VITALS: BP 108/74; PULSE 68; RESP 16; TEMP 97.6
[2021-01-18 13:55] LABS: Hepatitis B Surface AB- Quant 215.5 mIU/mL; Hepatitis B Surface Antibody Reactive (Non-Reactive); Hepatitis B Surface Antigen Non-Reactive (Non-Reactive); Hepatitis C IgG Antibody Non-Reactive (Non-Reactive)
--- NOTE | 2021-01-18 16:08 | P.CONS ---
History of Present Illness - Reason for Consult Consult date: 01/18/21 Right upper quadrant pain, elevated LFTs Requesting physician: Brandon Bello - Chief Complaint Right upper quadrant pain, shortness of breath, chest pain - History of Present Illness This is a 40-year-old white female who presented to the emergency department with complaints of right upper quadrant pain and shortness of breath and chest pain. She has significant past medical history other than anxiety and depression. Although the patient states she does have a history of H. pylori when she was that was treated as well as life long issues with her stomach and changes with her bowel movements from diarrhea to constipation. 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 She reports over the last 1- 2 weeks having right upper quadrant pain that is radiating to her right shoulder. She denies any nausea or vomiting. She also states that she has some epigastric discomfort. She's been on Prevacid 30 mg once a day. She has had 2 previous emergency department visits in the last week secondary to this same issue. Previous ultrasound and CAT scan were negative for any intra-abdominal process. Ultrasound did reveal a contracted gallbladder. She underwent a HIDA scan this admission with findings that include ejection fraction noted at 56% with no evidence of biliary dyskinesia and no evidence of cholecystitis. Currently, on exam, the patient continues to have right upper quadrant pain that radiates to the right flank and right shoulder. There is no evidence of leukocytosis and there is some mild elevation of transaminases. She states she does have a decreased appetite but is hungry. She reports being constipated. He denies any previous history of liver disease or elevated liver enzymes. Admission lipase 58, today total bilirubin 0.5, alkaline phosphatase 83, AST 61, ALT 86. Hepatitis panels been ordered and pending. Review of Systems Constitutional: Denies chills, Denies fever Eyes: denies blurred vision, denies pain Ears, nose, mouth and throat: Denies headache, Denies sore throat Cardiovascular: Reports chest pain, Reports shortness of breath Respiratory: Denies cough, Denies dyspnea Gastrointestinal: Reports abdominal pain, Reports change in bowel habits, Denies coffee ground emesis, Denies diarrhea, Denies loss of appetite, Denies nausea, Denies vomiting Integumentary: Denies pruritus, Denies rash Neurological: Denies numbness, Denies weakness Psychiatric: Reports anxiety Endocrine: Denies fatigue, Denies weight change Past Medical History Past Medical History: Pneumonia Additional Past Medical History / Comment(s): migraines, 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 History of Any Multi-Drug Resistant Organisms: None Reported Past Surgical History: No Surgical Hx Reported Past Psychological History: Anxiety, Depression Smoking Status: Former smoker, Vaper Past Alcohol Use History: None Reported Past Drug Use History: None Reported Medications and Allergies Home Medications Medication Instructions Recorded Confirmed Type Cetirizine HCl [Zyrtec] 10 mg PO DAILY 01/13/21 01/17/21 History FLUoxetine HCL [PROzac] 40 mg PO DAILY 01/13/21 01/17/21 History Ibuprofen [Motrin] 600 mg PO Q6H PRN 01/13/21 01/17/21 History Lansoprazole [Prevacid] 30 mg PO DAILY 01/13/21 01/17/21 History Mirtazapine [Remeron] 15 mg PO HS 01/13/21 01/17/21 History Paraguard 1 device VAGINAL ONCE 01/13/21 01/17/21 History Promethazine [Phenergan] 25 mg PO TID PRN 01/13/21 01/17/21 History Rizatriptan Odt [Maxalt Marketing Technologist] 10 mg PO Q2H PRN 01/13/21 01/17/21 History clonazePAM [KlonoPIN] 1 mg PO Q12H PRN 01/13/21 01/17/21 History Acetaminophen Tab [Tylenol Tab] 500 mg PO Q6HR PRN 01/17/21 01/17/21 History Doxylamine Succinate [Unisom] 25 mg PO HS PRN 01/17/21 01/17/21 History Allergies Allergy/AdvReac Type Severity Reaction Status Date / Time metoclopramide [From Reglan] Allergy Rapid Verified 01/17/21 11:43 Heart Rate Penicillins Allergy Rash/Hives Verified 01/17/21 11:43 prochlorperazine Allergy Rapid Verified 01/17/21 11:43 [From Compazine] Heart Rate Sulfa (Sulfonamide Allergy Rash/Hives Verified 01/17/21 11:43 Antibiotics) Physical Exam Vitals: Vital Signs Temp Pulse Pulse Resp BP BP Pulse Ox 01/18/21 13:48 97.6 F 68 16 108/74 100 01/18/21 06:49 98.1 F 61 18 98/65 100 01/18/21 02:00 98.0 F 65 18 92/62 99 01/17/21 19:50 97.5 F L 69 18 94/61 98 01/17/21 18:51 98.7 F 71 18 102/64 96 01/17/21 17:00 74 18 99/62 98 General appearance: The patient is alert, oriented, appears in no acute distress. HET: Head is normocephalic and atraumatic. Conjunctiva pink. Sclera anicteric. Neck: Supple without lymphadenopathy. Abdomen: Soft, right upper quadrant and epigastric tenderness, nondistended with bowel sounds. No guarding or rigidity. Extremities: Normal skin color and turgor. No pedal edema Skin: No rashes, no jaundice Neurological: No focal deficits. Alert and oriented 3. Results CBC & Chem 7: 01/18/21 06:33 01/18/21 06:33 Labs: Abnormal Lab Results - Last 24 Hours (Table) 01/18/21 01/18/21 Range/Units 06:33 06:33 AST 61 H (14-36) U/L ALT 86 H (4-34) U/L Total Protein 5.7 L (6.3-8.2) g/dL Albumin 3.3 L (3.5-5.0) g/dL Hep Bs Antibody Reactive A (Non-Reactive) Comments: HIDA scan: No sign to graphic evidence for acute/cholecystitis or biliary dyskinesia Chest x-ray shows no acute cardiopulmonary process Echocardiogram with overall ventricular systolic function normal EF between 55- 60%. No aortic stenosis or regurgitation. There is trace mitral regurgitation and mild tricuspid regurgitation present. No pericardial effusion CT angiogram of chest negative for pulmonary embolism Assessment and Plan (1) Epigastric pain Narrative/Plan: This is a 40-year-old white female who presented to the emergency department with complaints of right upper quadrant pain and shortness of breath and chest pain. She has significant past medical history other than anxiety and depression. Although the patient states she does have a history of H. pylori when she was that was treated as well as life long issues with her stomach and changes with her bowel movements from diarrhea to constipation. 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 She reports over the last 1- 2 weeks having right upper quadrant pain that is radiating to her right shoulder. She denies any nausea or vomiting. She also states that she has some epigastric discomfort. She's been on Prevacid 30 mg once a day. She has had 2 previous emergency department visits in the last week secondary to this same issue. Previous ultrasound and CAT scan were negative for any intra-abdominal process. Ultrasound did reveal a contracted gallbladder. She underwent a HIDA scan this admission with findings that include ejection fraction noted at 56% with no evidence of biliary dyskinesia and no evidence of cholecystitis. There is no evidence of leukocytosis and there is some mild elevation of transaminases. She states she does have a decreased appetite but is hungry. She reports being constipated. He denies any previous history of liver disease or elevated liver enzymes. Admission lipase 58, today total bilirubin 0.5, alkaline phosphatase 83, AST 61, ALT 86. Hepatitis panels been ordered and pending. Will increase Protonix to 40 mg twice a day. Discussed with patient given outpatient upper and lower endoscopy next week. Will be scheduled for next week Thursday, patient is agreeable to plan. Current Visit: Yes Status: Acute Code(s): R10.13 - EPIGASTRIC PAIN SNOMED Code(s): 89911108 (2) Chest pain Narrative/Plan: Echocardiogram ordered Current Visit: Yes Status: Acute Code(s): R07.9 - CHEST PAIN, UNSPECIFIED SNOMED Code(s): 22016753 Plan: 1. Supportive care 2. Advance diet as tolerated 3. Will increase Protonix to 40 mg twice a day 4. Discussed with patient increase her Prevacid to twice daily before eating 5. Patient scheduled for upper and lower endoscopy next week Thursday 6. Patient may be discharged home from a gastroenterology standpoint Thank you for this consultation and allowing us to take part in the plan of care of your patient Dr. Krishna Roldan I agree with the dictator's note, documented as a scribe by Kimberly Knapp.
--- NOTE | 2021-01-18 16:36 | P.DS ---
Providers Date of admission: 01/17/21 14:18 Expected date of discharge: 01/18/21 Attending physician: Brandon Bello MD Consults: 01/17/21 14:18 Consult Physician Routine Consulting Provider: Radha Avalos Consult Reason/Comments: Right upper quadrant abdominal pain Do you want consulting provider notified?: Yes 01/17/21 18:26 Consult Physician Routine Consulting Provider: Libra Roldan Consult Reason/Comments: Elevated LFTs, Abdominal Pain Do you want consulting provider notified?: Yes [facility] care physician: [facility] Course: 1. Abdominal Pain 2. Anxiety and Depression 3. Hx of Pseudotumor Cerebri 4. GERD 5. IBS 40 year old woman with history of anxiety/depression, GERD, pseudotumor cerebri, IBS presented with abdominal pain with negative HIDA scan and mildly elevated LFTs, which are non-specific, admitted for further workup. She was seen in consultation with GI and general surgery. Patient was tolerating a diet well and had appropriate stools. Pt's PPI was increased to BID. GI recommended outpatient evaluation with EGD/Kent to further evaluate pain. Pt had stool H Pylori done and this was pending at time of admission. Etiology of pain remains unclear, though EGD/Kent might shine some light on this. A superimposed component of anxiety/stress related pain cannot be completely ruled out at this time. I advised patient take some time off of work until her GI evaluation is complete. I also recommended that she see her psychiatrist and therapist in addition to GI evaluation during this time off. Patient and I spoke for about 40 minutes today regarding some of her stressors at home; I did ask if there was emotional or physical abuse in the household, which she denied. She agrees that her abdominal pain likely has component of stress, but is concerned about underlying pathophysiology which is very reasonable and has not been completely ruled out - this will be followed up by PCP and GI in the outpatient setting. Regarding her mildly elevated LFTs, a chronic hepatitis panel demonstrated immunity to Hep B and negative Hep C - this is likely secondary to NAFLD. Assessment: Gen: awake, alert HEENT: normocephalic, atraumatic, good hearing acuity, moist mucous membranes Resp: good air exchange, breathing comfortably with no accessory muscle use CVS: good distal perfusion x 4, GI: soft, NTTP, ND : no SPT, no CVAT, ohara catheter not present MSK: no pitting edema, no clubbing Neuro: non-focal, moving all extremities Psych: cooperative, euthymic mood Patient Condition at Discharge: Good Plan - Discharge Summary Discharge Rx Participant: No New Discharge Prescriptions: New Calcium Carbonate [Tums] 1,000 mg PO Q4HR PRN chew PRN Reason: Dyspepsia Continue Cetirizine HCl [Zyrtec] 10 mg PO DAILY clonazePAM [KlonoPIN] 1 mg PO Q12H PRN PRN Reason: Anxiety FLUoxetine HCL [PROzac] 40 mg PO DAILY Mirtazapine [Remeron] 15 mg PO HS Promethazine [Phenergan] 25 mg PO TID PRN PRN Reason: Nausea Rizatriptan Odt [Maxalt MOBILE MECHANIC] 10 mg PO Q2H PRN PRN Reason: Migraine Headache Paraguard 1 device VAGINAL ONCE Acetaminophen Tab [Tylenol] 500 mg PO Q6HR PRN PRN Reason: Pain Doxylamine Succinate [Unisom] 25 mg PO HS PRN PRN Reason: Insomnia Changed Lansoprazole [Prevacid] 30 mg PO BID #60 Discontinued Ibuprofen [Motrin] 600 mg PO Q6H PRN PRN Reason: Pain Discharge Medication List Cetirizine HCl [Zyrtec] 10 mg PO DAILY 01/13/21 [History] FLUoxetine HCL [PROzac] 40 mg PO DAILY 01/13/21 [History] Mirtazapine [Remeron] 15 mg PO HS 01/13/21 [History] Paraguard 1 device VAGINAL ONCE 01/13/21 [History] Promethazine [Phenergan] 25 mg PO TID PRN 01/13/21 [History] Rizatriptan Odt [Maxalt MOBILE MECHANIC] 10 mg PO Q2H PRN 01/13/21 [History] clonazePAM [KlonoPIN] 1 mg PO Q12H PRN 01/13/21 [History] Acetaminophen Tab [Tylenol] 500 mg PO Q6HR PRN 01/17/21 [History] Doxylamine Succinate [Unisom] 25 mg PO HS PRN 01/17/21 [History] Calcium Carbonate [Tums] 1,000 mg PO Q4HR PRN chew 01/18/21 [Rx] Lansoprazole [Prevacid] 30 mg PO BID #60 01/18/21 [Rx] Follow up Appointment(s)/Referral(s): Libra Roldan MD [STAFF PHYSICIAN] - 01/23/21 (EGD/Colonoscopy) Marissa Ramirez MD [Primary Care Provider] - 1-2 days Discharge Disposition: HOME SELF-CARE
== END 2021-01-18 17:43 | disposition home or self-care (01) ==
LOC: EC 10:40 → 4SSUR 14:18
PROVIDERS: ADMIT Internal Medicine; ATTEND Internal Medicine
DX: R10.9 Unspecified abdominal pain (principal); K21.9 Gastro-esophageal reflux disease without esophagitis; F41.9 Anxiety disorder, unspecified; K58.9 Irritable bowel syndrome, unspecified; F32.9 Major depressive disorder, single episode, unspecified; I42.8 Other cardiomyopathies; Z20.822 Contact with and (suspected) exposure to COVID-19; K82.8 Other specified diseases of gallbladder; Z79.899 Other long term (current) drug therapy; Z86.19 Personal history of other infectious and parasitic diseases; Z87.891 Personal history of nicotine dependence
CPT/HCPCS: 96361 ×3; 96372; 96375 ×2; 96374; 99285; 36415; 93005; 93306; 87338; 86803; 85379; 83880; 80053; 80048; 80076; 83690; 83735 ×2; 84484; 85025 ×2; 85610; 85730; 86706; 87340; 86704; 87635; 71046; 71275; 78227; G0378 ×2; A9537; J2270; J2805; J1650; J1885; J1170; Q9967

== ENCOUNTER 2021-01-23 11:51 | Day surgery (SDC) | payer BC, OTHER ==
[2021-01-21 11:22] VITALS: BMI 33.8
[~2021-01-23 11:51] MED LIST: LACTATED RINGERS 1,000 ML IV SCH; LIDOCAINE 1% (10MG/ML) FOR IV START INTRADERMA PRN
[2021-01-23 12:48] VITALS: TEMP 97.9
[2021-01-23] MEDS ORDERED: PROPOFOL 10 MG/ML 20 ML VIAL IV ONE (13:46)
--- NOTE | 2021-01-23 14:06 | P.PCN ---
Date of Procedure: 01/23/21 Procedure(s) Performed: Brief history: Patient is a pleasant 40-year-old white female who was recently admitted to the hospital with severe right upper quadrant abdominal pain, and change in bowel habits. She was treated symptomatically and was discharged home. She is scheduled for an elective upper endoscopy as well as colonoscopy as a part of evaluation of abdominal pain and change in bowel habits Procedure performed: Esophagogastroduodenoscopy with biopsy Colonoscopy Preoperative diagnosis: Epigastric and right upper quadrant abdominal pain Change in bowel habits with alternating diarrhea and constipation Anesthesia: MAC Procedure: After informed consent was obtained from the patient was brought into the endoscopy unit and IV sedation was administered by anesthesia under continuous monitoring. Initially upper endoscopy was done. The Olympus GF 160 video endoscope was inserted inserted into the mouth and esophagus intubated without any difficulty and was gradually advanced into the stomach and duodenum and carefully examined. The bulb and second part of the duodenum appeared normal. Abscesses were done from the duodenum to rule out celiac disease. The scope was then withdrawn into the stomach adequately insufflated with air and upon careful examination the antrum mild gastritis and biopsies were done from this area. The body, cardia and fundus appeared normal. The scope was then withdrawn into the esophagus. The GE junction was located at 40 cm to the incisors. It appeared regular with no erythema erosions or ulcerations. Rest of the esophagus appeared normal. Patient tolerated the procedure well. At this time the patient continued to remain sedation. Initial digital rectal examination was normal. Olympus CF 160 video colonoscope was then inserted into the rectum and gradually advanced to the cecum without any difficulty. Careful examination was performed as the scope was gradually being withdrawn. The prep was excellent. Terminal ileum was intubated and approximately 20 cm visualized and appeared normal. The cecum, ascending colon, transverse colon, descending colon, sigmoid colon and rectum appeared normal. Retroflexion was performed in the rectum and no lesions were noted. Patient tolerated the procedure well. Impression: 1. Upper endoscopy revealed mild antral gastritis but no evidence of esophagitis or peptic ulcer disease 2. Colonoscopy was within normal limits with no evidence of colitis or colorectal neoplasia Recommendations: Findings of this examination were discussed with the patient as well as[ her family. She was advised to follow with the biopsy results. She'll be seen in office in 2 weeks.
[2021-01-23 14:29] VITALS: BP 93/63; PULSE 71; RESP 16
== END 2021-01-23 15:05 | disposition home or self-care (01) ==
LOC: ORWHC2ENDO 11:51
PROVIDERS: ATTEND Internal Medicine Gastroenterology
DX: K29.50 Unspecified chronic gastritis without bleeding (principal); K31.7 Polyp of stomach and duodenum; K21.9 Gastro-esophageal reflux disease without esophagitis; K59.00 Constipation, unspecified; R19.7 Diarrhea, unspecified; K58.2 Mixed irritable bowel syndrome; I50.9 Heart failure, unspecified; F17.290 Nicotine dependence, other tobacco product, uncomplicated; Z88.2 Allergy status to sulfonamides; Z79.899 Other long term (current) drug therapy; Z88.0 Allergy status to penicillin; Z88.8 Allergy status to other drugs, medicaments and biological substances
CPT/HCPCS: 81025; 88305; 45378; 43239; J2704

== ENCOUNTER 2021-02-02 13:04 | Observation (INO) | payer BC, OTHER ==
--- NOTE | 2021-02-02 13:56 | ED ---
Recheck HPI - General Chief Complaint: Recheck/Abnormal Lab/Rx Stated Complaint: Edema,Shortness of breathe Time Seen by Provider: 02/02/21 13:34 Source: patient, RN notes reviewed, old records reviewed Mode of arrival: ambulatory Limitations: no limitations - History of Present Illness Initial Comments: This is a 32-year-old female she presents today for evaluation of multiple complaints, abdominal fullness pain and edema throughout her entire body. Patient abdominal pain is not significantly severe at this time. But she does feels like she has fall, maybe gaining weight or having increased weight gain starting last night. Patient has otherwise no recent travel history sick contacts she has several from liver disease not alcoholic fatty liver disease MD Complaint: wound re-check, other (Increased swelling throughout body) -: days(s) Returns Today for: persistent/worsening pain related to initial visit, other (Patient's body feels taut and tight) Symptoms Since Prior Visit: worsening pain Context: other (Patient presents for significant weight gain overnight) Associated Symptoms: none Treatments Prior to Arrival: other (Significant weight gain since last eval uation) - Related Data Home Medications Medication Instructions Recorded Confirmed Cetirizine HCl [Zyrtec] 10 mg PO DAILY 01/13/21 01/21/21 FLUoxetine HCL [PROzac] 40 mg PO DAILY 01/13/21 01/21/21 Mirtazapine [Remeron] 15 mg PO HS 01/13/21 01/21/21 Paraguard 1 device VAGINAL ONCE 01/13/21 01/21/21 Promethazine [Phenergan] 25 mg PO TID PRN 01/13/21 01/21/21 Rizatriptan Odt [Maxalt SPRING FLOOR SERVICE WORKER] 10 mg PO DIRECTED PRN 01/13/21 01/21/21 clonazePAM [KlonoPIN] 1 mg PO BID 01/13/21 01/21/21 Acetaminophen Tab [Tylenol] 500 mg PO Q6HR PRN 01/17/21 01/21/21 Ferrous Sulfate [Iron] 325 mg PO DAILY 01/21/21 01/21/21 Gas-X 180 mg PO BID 01/21/21 Ibuprofen [Motrin] 600 mg PO Q8HR PRN 01/21/21 01/21/21 Previous Rx's Medication Instructions Recorded Lansoprazole [Prevacid] 30 mg PO BID #60 01/18/21 Allergies Allergy/AdvReac Type Severity Reaction Status Date / Time metoclopramide [From Reglan] Allergy Rapid Verified 02/02/21 13:08 Heart Rate Penicillins Allergy Rash/Hives Verified 02/02/21 13:08 prochlorperazine Allergy Rapid Verified 02/02/21 13:08 [From Compazine] Heart Rate Sulfa (Sulfonamide Allergy Rash/Hives Verified 02/02/21 13:08 Antibiotics) hydroxyzine [From Vistaril] AdvReac Severe panic Verified 02/02/21 13:08 attack Review of Systems ROS Statement: Those systems with pertinent positive or pertinent negative responses have been documented in the HPI. ROS Other: All systems not noted in ROS Statement are negative. Past Medical History Past Medical History: Pneumonia Additional Past Medical History / Comment(s): migraines, 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 ?? History of Any Multi-Drug Resistant Organisms: None Reported Past Surgical History: No Surgical Hx Reported Past Psychological History: Anxiety, Depression Smoking Status: Former smoker, Vaper Past Alcohol Use History: None Reported Past Drug Use History: None Reported General Exam Limitations: no limitations General appearance: alert, in no apparent distress Head exam: Present: atraumatic, normocephalic, normal inspection Eye exam: Present: normal appearance, PERRL, EOMI. Absent: scleral icterus, conjunctival injection, periorbital swelling ENT exam: Present: normal exam, mucous membranes moist Neck exam: Present: normal inspection. Absent: tenderness, meningismus, lymphadenopathy Respiratory exam: Present: normal lung sounds bilaterally. Absent: respiratory distress, wheezes, rales, rhonchi, stridor Cardiovascular Exam: Present: regular rate, normal rhythm, normal heart sounds. Absent: systolic murmur, diastolic murmur, rubs, gallop, clicks GI/Abdominal exam: Present: soft, normal bowel sounds. Absent: distended, tende rness, guarding, rebound, rigid Extremities exam: Present: normal inspection, full ROM, normal capillary refill. Absent: tenderness, pedal edema, joint swelling, calf tenderness Back exam: Present: normal inspection Neurological exam: Present: alert, oriented X3, CN II-XII intact Psychiatric exam: Present: normal affect, normal mood Skin exam: Present: warm, dry, intact, normal color. Absent: rash Course Vital Signs 02/02/21 13:08 Temperature 98.8 F Pulse Rate 98 Respiratory 18 Rate Blood Pressure 140/92 O2 Sat by Pulse 99 Oximetry - Reevaluation(s) Reevaluation #1: 02/02/21 13:54 Medical record is reviewed Reevaluation #2: 02/02/21 13:54 In comparing weight last discharged today patient is up 14 pounds, 7 kg Medical Decision Making - Medical Decision Making 40 female to the ER for evaluation patient has significant fluid again, significant increase in fluid retention patient has again 7 kg overnight, patient has significant lower extremity swelling upper extremity swelling feels like her belly is swelling. No ascites noted. Kidney function is normal. Patient multiple evaluations during prior admissions including an echocardiogram etc. which were normal. - Lab Data Result diagrams: 02/02/21 13:52 02/02/21 13:52 Lab Results 02/02/21 02/02/21 Range/Units 13:52 13:52 WBC 6.1 (3.8-10.6) k/uL RBC 4.33 (3.80-5.40) m/uL Hgb 12.8 (11.4-16.0) gm/dL Hct 37.0 (34.0-46.0) % MCV 85.4 (80.0-100.0) fL MCH 29.5 (25.0-35.0) pg MCHC 34.5 (31.0-37.0) g/dL RDW 13.8 (11.5-15.5) % Plt Count 238 (150-450) k/uL MPV 8.1 Neutrophils % 66 % Lymphocytes % 23 % Monocytes % 6 % Eosinophils % 3 % Basophils % 1 % Neutrophils # 4.1 (1.3-7.7) k/uL Lymphocytes # 1.4 (1.0-4.8) k/uL Monocytes # 0.4 (0-1.0) k/uL Eosinophils # 0.2 (0-0.7) k/uL Basophils # 0.1 (0-0.2) k/uL Sodium 137 (137-145) mmol/L Potassium 3.9 (3.5-5.1) mmol/L Chloride 103 (98-107) mmol/L Carbon Dioxide 24 (22-30) mmol/L Anion Gap 10 mmol/L BUN 13 (7-17) mg/dL Creatinine 0.70 (0.52-1.04) mg/dL Est GFR (CKD-EPI)AfAm >90 (>60 ml/min/1.73 sqM) Est GFR (CKD-EPI)NonAf >90 (>60 ml/min/1.73 sqM) Glucose 97 (74-99) mg/dL Calcium 9.2 (8.4-10.2) mg/dL Phosphorus 3.8 (2.5-4.5) mg/dL Magnesium 2.1 (1.6-2.3) mg/dL Total Bilirubin 0.3 (0.2-1.3) mg/dL AST 53 H (14-36) U/L ALT 69 H (4-34) U/L Alkaline Phosphatase 99 (38-126) U/L Creatine Kinase 66 (30-135) U/L Total Protein 7.2 (6.3-8.2) g/dL Albumin 4.4 (3.5-5.0) g/dL Lipase 72 (23-300) U/L - EKG Data -: EKG Interpreted by Me (EKG shows sinus rhythm 76 DE 144 QRS 86 QTc 425) - Radiology Data Radiology results: report reviewed (US abdomen no ascites), image reviewed Disposition Clinical Impression: Anasarca, Weight gain Disposition: ADMITTED IP TO THIS [facility] Condition: Undetermined Is patient prescribed a controlled substance at d/c from ED?: No Referrals: Marissa Ramirez MD [Primary Care Provider] - 1-2 days
[2021-02-02 14:27] LABS: Basophils # (A) 0.1 k/uL (0-0.2); Basophils % (A) 1 %; Eosinophils # (A) 0.2 k/uL (0-0.7); Eosinophils % (A) 3 %; HGB 12.8 gm/dL (11.4-16.0); Lymphocytes # (A) 1.4 k/uL (1.0-4.8); Lymphocytes % (A) 23 %; MCH 29.5 pg (25.0-35.0); MCHC 34.5 g/dL (31.0-37.0); MCV 85.4 fL (80.0-100.0); Mean Platelet Volume 8.1; Monocytes # (A) 0.4 k/uL (0-1.0); Monocytes % (A) 6 %; Neutrophils # (A) 4.1 k/uL (1.3-7.7); Neutrophils % (A) 66 %; Platelet Count 238 k/uL (150-450); RBC 4.33 m/uL (3.80-5.40); RDW 13.8 % (11.5-15.5); WBC 6.1 k/uL (3.8-10.6)
[2021-02-02] MEDS ORDERED: MORPHINE SULFATE 4 MG/ML SYRINGE IVP STA (14:31)
[2021-02-02] MEDS ORDERED: MORPHINE SULFATE 4 MG/ML SYRINGE IVP PRN (14:31)
[2021-02-02 14:40] LABS: ALT 69 U/L (4-34); AST 53 U/L (14-36); African American GFR (CKD) >90 (>60 ml/min/1.73 sqM); Albumin 4.4 g/dL (3.5-5.0); Alkaline Phosphatase 99 U/L (38-126); Anion Gap 10 mmol/L; Blood Urea Nitrogen 13 mg/dL (7-17); Calcium 9.2 mg/dL (8.4-10.2); Carbon Dioxide 24 mmol/L (22-30); Chloride 103 mmol/L (98-107); Creatine Kinase 66 U/L (30-135); Glucose 97 mg/dL (74-99); Lipase 72 U/L (23-300); Magnesium 2.1 mg/dL (1.6-2.3); Non-African American GFR(CKD) >90 (>60 ml/min/1.73 sqM); Phosphorus 3.8 mg/dL (2.5-4.5); Potassium 3.9 mmol/L (3.5-5.1); Sodium 137 mmol/L (137-145); Total Bilirubin 0.3 mg/dL (0.2-1.3); Total Protein 7.2 g/dL (6.3-8.2)
[2021-02-02 14:55] LABS: INR 0.9 (<1.2); Partial Thromboplastin Time 23.4 sec (22.0-30.0); Prothrombin Time 9.8 sec (9.0-12.0)
[2021-02-02 15:03] LABS: Appearance,Urine Clear (Clear); Bacteria,Urine Occasional /hpf; Bilirubin,Urine Negative (Negative); Blood,Urine Large (Negative); Color,Urine Light Yellow; Glucose,Urine (UA) Negative (Negative); Ketones,Urine Negative (Negative); Leukocyte Esterase,Urine Negative (Negative); Nitrite,Urine Negative (Negative); Protein,Urine Negative (Negative); RBC,Urine 1 /hpf (0-5); Specific Gravity,Urine 1.003 (1.001-1.035); Urobilinogen,Urine <2.0 mg/dL (<2.0); WBC,Urine 1 /hpf (0-5)
[2021-02-02] MEDS ORDERED: NALOXONE 0.4 MG/ML 1 ML VIAL IV PRN (17:54)
--- NOTE | 2021-02-02 18:01 | P.HPIM ---
History of Present Illness H&P Date: 02/02/21 Chief Complaint: weight gain 40-year-old female with history of anxiety and depression presented to the emergency department because of weight gain of about 15 pounds since yesterday. He states that yesterday her weight was 182 pounds and today he said 195. She feels swollen all over in her face, arms and legs. She states that she feels that her face is getting tighter and all of her wrinkles are gone due to the swelling. She also claims that the circumference of her arms and legs has increased. A few weeks ago which was admitted to the hospital because of right-sided abdominal pain that was thought to be secondary to stress. She had workup consistent of upper and lower endoscopies which only showed slight gastritis. She had an echocardiogram which did not show anything. In the emergency department. Blood work was unremarkable. She was admitted for further evaluation and management. Review of Systems Complete review of system performed, pertinent positives per HPI, otherwise negative Past Medical History Past Medical History: Pneumonia Additional Past Medical History / Comment(s): migraines. questionable cardiomyopathy after her child was delivered History of Any Multi-Drug Resistant Organisms: None Reported Past Surgical History: No Surgical Hx Reported Past Anesthesia/Blood Transfusion Reactions: No Reported Reaction Past Psychological History: Anxiety, Depression Smoking Status: Former smoker, Vaper Past Alcohol Use History: None Reported Past Drug Use History: None Reported - Past Family History Mother Family Medical History: No Reported History Medications and Allergies Home Medications Medication Instructions Recorded Confirmed Type Cetirizine HCl [Zyrtec] 10 mg PO DAILY 01/13/21 02/02/21 History FLUoxetine HCL [PROzac] 40 mg PO DAILY 01/13/21 02/02/21 History Mirtazapine [Remeron] 15 mg PO HS 01/13/21 02/02/21 History Paraguard 1 device VAGINAL ONCE 01/13/21 02/02/21 History Promethazine [Phenergan] 25 mg PO TID PRN 01/13/21 02/02/21 History Rizatriptan Odt [Maxalt CASH APPLICATIONS MANAGER] 10 mg PO DIRECTED PRN 01/13/21 02/02/21 History clonazePAM [KlonoPIN] 1 mg PO BID 01/13/21 02/02/21 History Acetaminophen Tab [Tylenol] 500 mg PO Q6HR PRN 01/17/21 02/02/21 History Lansoprazole [Prevacid] 30 mg PO BID #60 01/18/21 02/02/21 Rx Ferrous Sulfate [Iron] 325 mg PO DAILY 01/21/21 02/02/21 History Gas-X 180 mg PO BID 01/21/21 02/02/21 History Ibuprofen [Motrin] 600 mg PO Q8HR PRN 01/21/21 02/02/21 History Allergies Allergy/AdvReac Type Severity Reaction Status Date / Time metoclopramide [From Reglan] Allergy Rapid Verified 02/02/21 17:38 Heart Rate Penicillins Allergy Rash/Hives Verified 02/02/21 17:38 prochlorperazine Allergy Rapid Verified 02/02/21 17:38 [From Compazine] Heart Rate Sulfa (Sulfonamide Allergy Rash/Hives Verified 02/02/21 17:38 Antibiotics) hydroxyzine [From Vistaril] AdvReac Severe panic Verified 02/02/21 17:38 attack Physical Exam Vitals: Vital Signs Temp Pulse Pulse Resp BP BP Pulse Ox 02/02/21 17:26 97.9 F 109 H 22 137/96 94 L 02/02/21 16:58 98.0 F 79 16 136/88 99 02/02/21 13:08 98.8 F 98 18 140/92 99 Intake and Output 02/02/21 02/02/21 02/02/21 06:59 14:59 22:59 Other: Weight 88.451 kg 86.9 kg Constitutional: No acute distress, conversant, pleasant Eyes:Anicteric sclerae, moist conjunctiva, no lid-lag, PERRLA, ENMT: Oropharynx clear, no erythema, exudates Neck: Supple, FROM, no masses, or JVD, No carotid bruits, No thyromegaly Lungs: Clear to auscultation, Clear to percussion, Normal respiratory effort, no accessory muscle use Cardiovascular: Heart regular in rate and rhythm, No murmurs, gallops, or rubs, No peripheral edema Abdominal: Soft, Nontender, no guarding, rebound or rigidity, Normoactive bowel sounds, No hepatomegaly, No splenomegaly, No palpable mass Skin: Normal temperature, tone, texture, turgor, no induration, No subcutaneous nodules, No rash, lesions, No ulcers Extremities: No digital cyanosis, No clubbing, Pedal pulses intact and symmetrical, Radial pulses intact and symmetrical, No calf tenderness Psychiatric: Alert and oriented to person, place and time, appropriate affect, intact judgement Neuro: Muscles Strength 5/5 in all 4 extremities, Sensation to light touch grossly present throughout, Cranial nerves II-XII grossly intact, no focal sensory deficits Results CBC & Chem 7: 02/02/21 13:52 02/02/21 13:52 Labs: Abnormal Lab Results - Last 24 Hours (Table) 02/02/21 02/02/21 Range/Units 13:52 14:36 AST 53 H (14-36) U/L ALT 69 H (4-34) U/L Urine Blood Large H (Negative) Urine Bacteria Occasional H (None) /hpf Thrombosis Risk Factor Assmnt - Choose All That Apply Any of the Below Risk Factors Present?: Yes Each Factor Represents 1 point: Obesity (BMI >25), Swollen legs (current) Thrombosis Risk Factor Assessment Total Risk Factor Score: 2 Thrombosis Risk Factor Assessment Level: Low Risk Assessment and Plan Plan: Likely illness anxiety disorder Patient does not have significant proteinuria, congestive heart failure or liver dysfunction to explain fluid retention. On exam she does not have significant pitting edema. Consult nephrology for reassurance Headaches Tylenol when necessary Anxiety and depression Continue all medications, consider psychiatry consult Admit to observation
[2021-02-02] MEDS: ACETAMINOPHEN TAB 325 MG TAB PO PRN ×2 (18:15→23:57)
[2021-02-02] MEDS: FERROUS SULFATE 325 MG TAB PO SCH (19:03)
[2021-02-02] MEDS ORDERED: MIRTAZAPINE 15 MG TAB PO SCH (21:00)
[2021-02-02] MEDS ORDERED: SUMAtriptan succinate 50 MG TAB PO PRN (21:00)
[2021-02-02] MEDS: clonazePAM 1 MG TAB PO SCH (21:09)
[2021-02-02] MEDS: PROMETHAZINE 25 MG TAB PO PRN (21:09)
[2021-02-02] MEDS: SIMETHICONE 80 MG CHEWABLE PO SCH (21:09)
[2021-02-03] MEDS ORDERED: MELATONIN 5 MG TABLET PO PRN (00:07)
[2021-02-03] MEDS: IBUPROFEN 600 MG TAB PO PRN ×2 (01:43→08:39)
[2021-02-03 02:01] VITALS: RESP 16
[2021-02-03] MEDS ORDERED: PANTOPRAZOLE 40 MG TABLET PO SCH (07:30)
[2021-02-03 08:13] LABS: ALT 59 U/L (4-34); AST 47 U/L (14-36); African American GFR (CKD) >90 (>60 ml/min/1.73 sqM); Albumin 3.8 g/dL (3.5-5.0); Alkaline Phosphatase 79 U/L (38-126); Anion Gap 10 mmol/L; Blood Urea Nitrogen 14 mg/dL (7-17); Calcium 8.4 mg/dL (8.4-10.2); Carbon Dioxide 21 mmol/L (22-30); Chloride 104 mmol/L (98-107); Glucose 90 mg/dL (74-99); Non-African American GFR(CKD) >90 (>60 ml/min/1.73 sqM); Potassium 4.9 mmol/L (3.5-5.1); Sodium 135 mmol/L (137-145); Total Bilirubin 0.6 mg/dL (0.2-1.3); Total Protein 6.5 g/dL (6.3-8.2)
[2021-02-03 08:20] LABS: Basophils # (A) 0.1 k/uL (0-0.2); Basophils % (A) 1 %; Eosinophils # (A) 0.2 k/uL (0-0.7); Eosinophils % (A) 3 %; HCT 33.5 % (34.0-46.0); HGB 12.1 gm/dL (11.4-16.0); Lymphocytes # (A) 1.4 k/uL (1.0-4.8); Lymphocytes % (A) 23 %; MCH 31.6 pg (25.0-35.0); MCHC 36.2 g/dL (31.0-37.0); MCV 87.3 fL (80.0-100.0); Mean Platelet Volume 9.4; Monocytes # (A) 0.5 k/uL (0-1.0); Monocytes % (A) 8 %; Neutrophils # (A) 3.8 k/uL (1.3-7.7); Platelet Count 199 k/uL (150-450); RBC 3.84 m/uL (3.80-5.40); RDW 14.1 % (11.5-15.5); WBC 5.9 k/uL (3.8-10.6)
[2021-02-03] MEDS: SIMETHICONE 80 MG CHEWABLE PO SCH (08:32)
[2021-02-03] MEDS: FERROUS SULFATE 325 MG TAB PO SCH (08:32)
[2021-02-03] MEDS: clonazePAM 1 MG TAB PO SCH (08:32)
[2021-02-03 08:47] VITALS: TEMP 98.1
[2021-02-03] MEDS ORDERED: LORATADINE 10 MG TAB PO SCH (09:00)
[2021-02-03] MEDS: PROMETHAZINE 25 MG TAB PO PRN (11:19)
[2021-02-03] MEDS ORDERED: FLUoxetine HCL 20 MG CAP PO SCH (12:30)
--- NOTE | 2021-02-03 13:28 | P.NPCON ---
History of Present Illness - Reason for Consult Consult date: 02/03/21 - Chief Complaint Acute onset of edema - History of Present Illness This is a 40-year-old female seen in consultation because of acute onset of edema and weight gain. Patient states that overnight she gained about 15 pounds. She has been gaining edema will recently. She says about 2 years ago she also had the same problem and was admitted and had to have Lasix for several days. She denies taking any nonsteroidals, although her home medication list ibuprofen. She states the last time she took it was about more than a month ago. Although she did receive it in the hospital since yesterday because of headache The only changes in medication is that her Prevacid was doubled up because of gastritis. Her lab on admission on 02/02/2021 yesterday showed sodium 137, 3.9, 103, 24. Creatinine 0.7 BNS 13. This morning sodium is 135 Calcium is 9.2 glucose 97. Albumin is 4.4 Urinalysis is normal except for large blood specific gravity 1003, protein negative She is known with history of anxiety depression history of pseudotumor cerebritis irritable bowel syndrome. Recently she had abdominal discomfort and elevated liver function tests and was admitted on 01/17/2021 and discharged next day on 01/18/2021. She had ultrasound of the abdomen during her last admission on 01/11/2021 which showed normal gallbladder but contracted, biliary scan was unremarkable Echocardiogram was unremarkable (clear wall thickness normal ejection fraction 55-60% mild tricuspid mitral valve regurgitation. Aortic valve normal Liver function tests are slightly abnormal on 311 with AST being in the 50-60 range, back down to 53 now AST was slightly high in the 86 being highest. Back down to 59 Past Medical History Past Medical History: Pneumonia Additional Past Medical History / Comment(s): migraines. questionable cardiomyopathy after her child was delivered History of Any Multi-Drug Resistant Organisms: None Reported Past Surgical History: No Surgical Hx Reported Past Anesthesia/Blood Transfusion Reactions: No Reported Reaction Past Psychological History: Anxiety, Depression Smoking Status: Former smoker, Vaper Past Alcohol Use History: None Reported Past Drug Use History: None Reported - Past Family History Mother Family Medical History: No Reported History Medications and Allergies Home Medications Medication Instructions Recorded Confirmed Type Cetirizine HCl [Zyrtec] 10 mg PO DAILY 01/13/21 02/02/21 History FLUoxetine HCL [PROzac] 40 mg PO DAILY 01/13/21 02/02/21 History Mirtazapine [Remeron] 15 mg PO HS 01/13/21 02/02/21 History Paraguard 1 device VAGINAL ONCE 01/13/21 02/02/21 History Promethazine [Phenergan] 25 mg PO TID PRN 01/13/21 02/02/21 History Rizatriptan Odt [Maxalt MEDICAL CODER] 10 mg PO DIRECTED PRN 01/13/21 02/02/21 History clonazePAM [KlonoPIN] 1 mg PO BID 01/13/21 02/02/21 History Acetaminophen Tab [Tylenol] 500 mg PO Q6HR PRN 01/17/21 02/02/21 History Lansoprazole [Prevacid] 30 mg PO BID #60 01/18/21 02/02/21 Rx Ferrous Sulfate [Iron] 325 mg PO DAILY 01/21/21 02/02/21 History Gas-X 180 mg PO BID 01/21/21 02/02/21 History Ibuprofen [Motrin] 600 mg PO Q8HR PRN 01/21/21 02/02/21 History Allergies Allergy/AdvReac Type Severity Reaction Status Date / Time metoclopramide [From Reglan] Allergy Rapid Verified 02/02/21 17:38 Heart Rate Penicillins Allergy Rash/Hives Verified 02/02/21 17:38 prochlorperazine Allergy Rapid Verified 02/02/21 17:38 [From Compazine] Heart Rate Sulfa (Sulfonamide Allergy Rash/Hives Verified 02/02/21 17:38 Antibiotics) hydroxyzine [From Vistaril] AdvReac Severe panic Verified 02/02/21 17:38 attack Physical Exam Vitals: Vital Signs Temp Pulse Pulse Resp BP BP Pulse Ox 02/03/21 08:30 98.1 F 89 16 91/59 100 02/03/21 01:45 97.8 F 85 16 102/64 99 02/02/21 20:00 98.9 F 100 18 107/68 02/02/21 17:26 97.9 F 109 H 22 137/96 94 L 02/02/21 16:58 98.0 F 79 16 136/88 99 Intake and Output 02/02/21 02/03/21 02/03/21 22:59 06:59 14:59 Intake Total 600 Output Total 1300 Balance -700 Intake: Oral 600 Output: Urine 1300 Other: # Voids 0 200 Weight 86.9 kg On examination is awake alert oriented but very anxious. HEENT exam no JVP neck is supple no facial asymmetry Lungs clear to auscultation good air entry bilaterally Heart sounds unremarkable for him any murmur rub gallop Abdomen soft nontender no organomegaly ascites masses Extremity exam was no edema Neurologically awake alert oriented She is very anxious and was in tears after being told that it was not possible that a 15 pound weight gain could occur overnight without any fluid intake or salt intake or a combination Results - Lab Results Most recent lab results Calcium 8.4 mg/dL (8.4-10.2) 02/03/21 06:52 Phosphorus 3.8 mg/dL (2.5-4.5) 02/02/21 13:52 Magnesium 2.1 mg/dL (1.6-2.3) 02/02/21 13:52 02/03/21 06:52 02/03/21 06:52 Assessment and Plan Assessment: Impression 1. Acute onset of edema or the last few days but worse overnight. Possible periodic cyclic edema which is an entity without any clear explanation except for some capillary leak occurring for unknown reasons in young females. Workup has shown normal lungs and liver function is slightly off, albumin is normal urinalysis is normal heart exam chest x-ray and echocardiogram normal. Ruled out hypothyroidism, TSH is been normal on 07/10/2020 but no recent TSH 2. Anxiety disorder. 3. History of EGD recently, on 01/23/2021 showing mild antral gastritis normal colonoscopy Recommendation 1. Extensive discussion with the patient regarding the possibility that this could be periodic cyclic edema seen in young females. 2. Should been recommended to maintain weight records blood pressure both sitting and standing with heart rates and come back to our office in 3-4 days to see if a diet 3 is section of salt to 2 g per day, and avoidance of nonsteroidals would help. 3. Discontinue the nonsteroidal that she is on in here. 4. Check TSH, uric acid, urine osmolality urine creatinine and urine protein and urine sodium 5. Patient can be discharged, though diuretics recommended at this time but if she continues to gain weight we will start her on Lasix and see if that can help her reduce her edema under careful monitoring and observation Thank you for this consultation and will continue to follow as an outpatient
[2021-02-03 13:51] LABS: Creatinine,Urine Random 33.6 mg/dL; Protein/Creatinine Ratio,Urine 0.863
[2021-02-03 13:52] LABS: Uric Acid 5.6 mg/dL (3.7-7.4)
[2021-02-03 13:52] LABS: Creatinine,Urine Random 34.3 mg/dL
[2021-02-03 14:25] VITALS: BP 110/78; PULSE 87
--- NOTE | 2021-02-03 16:31 | P.DS ---
Providers Date of admission: 02/02/21 14:52 Expected date of discharge: 02/03/21 Attending physician: Elidia Lew Consults: 02/02/21 14:51 Consult Physician Routine Consulting Provider: Charline Meza Consult Reason/Comments: fluidRetention Do you want consulting provider notified?: Yes Primary care physician: [facility] Course: 40-year-old female with history of anxiety and depression presented to the emergency department because of weight gain of about 15 pounds since yesterday. He states that yesterday her weight was 182 pounds and today he said 195. She feels swollen all over in her face, arms and legs. She states that she feels that her face is getting tighter and all of her wrinkles are gone due to the swelling. She also claims that the circumference of her arms and legs has increased. A few weeks ago which was admitted to the hospital because of right- sided abdominal pain that was thought to be secondary to stress. She had workup consistent of upper and lower endoscopies which only showed slight gastritis. She had an echocardiogram which did not show anything. In the emergency department. Blood work was unremarkable. She was admitted for further evaluation and management. Upon admission her weight has been stable around 86-87 KG. Patient was evaluated by nephrology. She did not have significant proteinuria, cardiomyopathy or liver dysfunction to explain her symptoms. She does use an intrauterine device which secretes small amount of progesterone and due to that she was told to follow-up with her claims account manager to assess for its continued use in light of her new symptoms. Patient was also noted to be taking Remeron which will be discontinued. Upon discharge patient was told to follow-up with the emergency department physician. She was given prescription for Lasix when necessary for fluid retention. She was reassured that she likely does not have any serious condition that would explain her symptoms. Patient Condition at Discharge: Undetermined Plan - Discharge Summary Discharge Rx Participant: No New Discharge Prescriptions: New Furosemide [Lasix] 20 mg PO DAILY PRN 30 Days #30 tab PRN Reason: Edema Continue Cetirizine HCl [Zyrtec] 10 mg PO DAILY clonazePAM [KlonoPIN] 1 mg PO BID FLUoxetine HCL [PROzac] 40 mg PO DAILY Promethazine [Phenergan] 25 mg PO TID PRN PRN Reason: Nausea Rizatriptan Odt [Maxalt MANAGER VISUAL] 10 mg PO DIRECTED PRN PRN Reason: Migraine Headache Paraguard 1 device VAGINAL ONCE Lansoprazole [Prevacid] 30 mg PO BID #60 Ferrous Sulfate [Iron] 325 mg PO DAILY Discontinued Mirtazapine [Remeron] 15 mg PO HS Acetaminophen Tab [Tylenol] 500 mg PO Q6HR PRN PRN Reason: Pain Gas-X 180 mg PO BID Ibuprofen [Motrin] 600 mg PO Q8HR PRN PRN Reason: Pain Discharge Medication List Cetirizine HCl [Zyrtec] 10 mg PO DAILY 01/13/21 [History] FLUoxetine HCL [PROzac] 40 mg PO DAILY 01/13/21 [History] Paraguard 1 device VAGINAL ONCE 01/13/21 [History] Promethazine [Phenergan] 25 mg PO TID PRN 01/13/21 [History] Rizatriptan Odt [Maxalt MANAGER VISUAL] 10 mg PO DIRECTED PRN 01/13/21 [History] clonazePAM [KlonoPIN] 1 mg PO BID 01/13/21 [History] Lansoprazole [Prevacid] 30 mg PO BID #60 01/18/21 [Rx] Ferrous Sulfate [Iron] 325 mg PO DAILY 01/21/21 [History] Furosemide [Lasix] 20 mg PO DAILY PRN 30 Days #30 tab 02/03/21 [Rx] Follow up Appointment(s)/Referral(s): Charline Meza MD [STAFF PHYSICIAN] - 1 Week Marissa Ramirez MD [Primary Care Provider] - 1-2 days Patient Instructions/Handouts: Low-Sodium Diet (DC), Fluid Restriction (DC) Activity/Diet/Wound Care/Special Instructions: Monitor Blood pressure sitting and then standing each day and record it Monitor your heart rate each day and recod it Monitor your weight each day same time, same clothes or without clothes and record it. You will then take this information with you to your follow up appointment with Dr Meza-Nephrology next week. No NSAIDS, limit sodium intake and fluid intake. Please see your claims account manager to discuss water retention with your IUD.
--- NOTE | 2021-02-05 09:12 | US ---
EXAMINATION TYPE: US abdomen limited. DATE OF EXAM: 02/02/2021 COMPARISON: NONE CLINICAL HISTORY: ascites. TECHNIQUE: Grayscale imaging of the abdominal quadrants were obtained. FINDINGS: No evidence of ascites. IMPRESSION: No significant ascites seen.
== END 2021-02-03 16:43 | disposition home or self-care (01) ==
LOC: EC 13:04 → 6PED 14:52
PROVIDERS: ADMIT Internal Medicine; ATTEND Internal Medicine
DX: R60.1 Generalized edema (principal); R79.89 Other specified abnormal findings of blood chemistry; M79.89 Other specified soft tissue disorders; F41.9 Anxiety disorder, unspecified; F32.9 Major depressive disorder, single episode, unspecified; G43.909 Migraine, unspecified, not intractable, without status migrainosus; E66.9 Obesity, unspecified; Z68.35 Body mass index [BMI] 35.0-35.9, adult; K29.70 Gastritis, unspecified, without bleeding; Z87.01 Personal history of pneumonia (recurrent); Z87.891 Personal history of nicotine dependence; Z79.899 Other long term (current) drug therapy; Z79.1 Long term (current) use of non-steroidal anti-inflammatories (NSAID); Z88.0 Allergy status to penicillin; Z88.8 Allergy status to other drugs, medicaments and biological substances; Z88.2 Allergy status to sulfonamides; Z20.822 Contact with and (suspected) exposure to COVID-19; Z97.5 Presence of (intrauterine) contraceptive device
CPT/HCPCS: 96376; 96374; 99285; 36415; 93005; 84300; 83880; 82570; 80053 ×2; 84443; 84156; 82550; 83690; 83735; 84100; 84550; 84484; 85025 ×2; 85610; 85730; 81001; 83935; 87635; 76705; G0378 ×2; J2270